=== PATIENT | male | born 1945 | race Caucasian/White ===

== ENCOUNTER 2019-02-15 19:59 | Inpatient (IN) | payer MEDICARE, SELFPAY ==
[2019-02-15] VITALS (13 sets, daily range): BP systolic 117–143; BP diastolic 65–85; PULSE 92–142; RESP 14–27; TEMP 36.8; O2SAT 92–95; BMI 42.0; BMI 42.1
--- NOTE | 2019-02-15 20:02 | ECHOCS_ITS ---
Reason For Study: Afib/Flutter Procedure This was a 2D Doppler, Color Flow transthoracic echocardiogram. The study was technically difficult. Contrast injection was performed. Exam performed portable in patient room. Left Ventricle Normal size and thickness. The estimated ejection fraction is 55 %. Stage 2 diastolic dysfunction. There is borderline global hypokinesis of the left ventricle. Right Ventricle Moderately dilated right ventricle. ICD or pacer leads identified within the right ventricle. Normal systolic function. Atria The left atrium is moderately enlarged. Normal right atrium. Normal atrial septum. Bubble contrast study negative for right to left interatrial shunt. Mitral Valve The mitral valve is structurally normal. No prolapse or stenosis seen. Mild (1+) mitral valve insufficiency. Tricuspid Valve Normal tricuspid valve. Mild (1+) tricuspid valve insufficiency. Right ventricular systolic pressure estimated to be 46 mmHg. Moderate pulmonary hypertension. Aortic Valve Trisinus/trileaflet aortic valve. Moderate diffuse aortic valve thickening. Mild focal aortic valve calcification. Moderate restriction of the aortic valve. Mild to moderate aortic stenosis. Peak aortic valve gradient 23 mmHg. Mean aortic valve gradient 11 mmHg. Calculated aortic valve area (continuity equation) is 1.1 cm2. Pulmonic Valve Normal pulmonic valve. Great Vessels Normal aortic root. Normal arch. Normal inferior vena cava. Inferior vena cava collapse with sniff. Pericardium/Pleural No pericardial effusion. Medication Diluted definity 2ml given slow IV push to enhance endocardial definition. MMode/2D Measurements & Calculations LVIDd: 4.4 cm IVSd: 1.3 cm LVOT diam: 2.0 cm LVIDs: 3.5 cm LVPWd: 1.3 cm FS: 21.8 % LVOT area: 3.2 cm2 LAV(MOD-bp): 64.5 ml LA A4 area: 24.2 cm2 RA A4 area: 16.6 cm2 LAV(MOD-bp) Indexed: 24.6 ml/m2 LAV(MOD-sp2): 59.9 ml LAV(MOD-sp4): 69.8 ml Time Measurements MV dec time: 0.16 sec Doppler Measurements & Calculations MV E max luis: 134.2 cm/sec Lat Peak E' Luis: 15.0 cm/sec Med Peak E' Luis: 7.5 cm/sec MV A max luis: 71.0 cm/sec E/E' lat: 8.9 E/E' med: 17.9 MV E/A: 1.9 MV V2 max: 148.3 cm/sec MV P1/2t max luis: 148.9 cm/sec Ao V2 max: 238.5 cm/sec MV max P.8 mmHg MV P1/2t: 64.6 msec Ao max P.8 mmHg MV V2 mean: 72.8 cm/sec MV dec slope: 675.0 cm/sec2 Ao V2 mean: 155.3 cm/sec MV mean P.7 mmHg Ao mean P.1 mmHg MV V2 VTI: 33.1 cm MVA(P1/2t): 3.4 cm2 Ao V2 VTI: 50.9 cm MVA(VTI): 1.6 cm2 MARY(I,D): 1.0 cm2 MARY(V,D): 1.0 cm2 LV V1 max: 76.8 cm/sec MR max luis: 428.4 cm/sec SV(LVOT): 52.6 ml LV V1 max P.4 mmHg MR max P.4 mmHg LV V1 mean P.3 mmHg LV V1 mean: 51.8 cm/sec LV V1 VTI: 16.2 cm TR max luis: 297.1 cm/sec TR max P.3 mmHg Interpretation Summary The estimated ejection fraction is 55 %. Stage 2 diastolic dysfunction. There is borderline global hypokinesis of the left ventricle. Moderately dilated right ventricle. The left atrium is moderately enlarged. Bubble contrast study negative for right to left interatrial shunt. Mild (1+) mitral valve insufficiency. Mild (1+) tricuspid valve insufficiency. Right ventricular systolic pressure estimated to be 46 mmHg. Moderate pulmonary hypertension. Moderate restriction of the aortic valve. Mild to moderate aortic stenosis. Patient appears to be in atrial flutter. The study was technically difficult. There is no comparison study available. Contrast injection was performed. Ordering Physician: Jennie Antonio Performed By: Guevara German RCS
--- NOTE | 2019-02-15 20:04 | HP.PCM_ITS ---
Problem List (1) Atrial flutter with rapid ventricular response Status: Acute (2) Hypertension Status: Chronic Qualifiers: Hypertension type: essential hypertension Qualified Code(s): I10 - Essential (primary) hypertension (3) DM type 2 (diabetes mellitus, type 2) Status: Chronic Qualifiers: Diabetes mellitus intermediate accountant insulin use: with intermediate accountant use Diabetes mellitus complication status: without complication Qualified Code(s): E11.9 - Type 2 diabetes mellitus without complications; Z79.4 - [facility] (current) use of insulin (4) Morbid obesity with BMI of 40.0-44.9, adult Status: Chronic (5) Chronic atrial fibrillation Status: Chronic (6) Status cardiac pacemaker Status: Chronic History of Present Illness Date of Admission: 02/15/19 Chief Complaint: Elevated heart rate - noticed today The patient is a 73 year old M with past medical history of chronic atrial fibrillation, pretension, type II DM, morbid obesity who recently moved to live with his daughter in [place]. He went to establish with a primary care doctor today and was found to have elevated heart rate and was sent to the emergency department. He denied any symptoms of palpitations or dizziness or chest pain or leg swelling. Patient admits to having run out of his medication for about 3 weeks. In the emergency department, he was found to be in atrial flutter with RVR. He received Cardizem 20 mg bolus, labetalol 10 mg IV x1 and was given Xarelto 20 mg tablet. Blood work done in the [facility] ED WBC count of 8.5, hemoglobin 15.7, platelet count of 203, INR was 1.0, sodium was 139, potassium 4.7, chloride 101, CO2 30, BUN 18, creatinine 1.15, magnesium was 1.8, troponin 0.087. EKG shows atrial flutter with RVR, QTC 437 On admission, patient's heart rate was in the 160s, blood pressure was 143/65, respiratory rate was 18, SPO2 was 95% on room air, temperature 98.2 F. Past Medical History Past Medical History (Chronic Problems): Chronic Problems Hypertension (Chronic) DM type 2 (diabetes mellitus, type 2) (Chronic) Morbid obesity with BMI of 40.0-44.9, adult (Chronic) Chronic atrial fibrillation (Chronic) Status cardiac pacemaker (Chronic) Home Medications: Ambulatory Orders Medication Instructions Recorded Citalopram [Celexa] 40 mg PO DAILY 02/15/19 Hydrochlorothiazide 1 tab PO DAILY 02/15/19 Insulin Glargine [Lantus SoloStar 16 units SQ QHS 02/15/19 Pen] Rivaroxaban [Xarelto] 1 tab PO DAILY 02/15/19 Sotalol Hydrochloride [Betapace 1 tab PO BID 02/15/19 (Beta Cristian)] Tamsulosin HCl 1 tab PO DAILY 02/15/19 Surgical History: cholecystectomy, pacemaker implantation, - - hemorrhoidectomy Psychiatric History: Anxiety, Depression Lives: With Family Smoking Status: Former smoker Tobacco Use: Non-smoker Alcohol: None Drugs: None - *Family History Maternal History Items: Cancer - stomach Paternal History Items: Diabetes Sibling History Items: Cancer - rectal Review of Systems Constitutional: Denies: Anorexia, Chills, Fever, Malaise, Weakness, Weight Change Eyes: Denies: Blurred vision, Cataracts, Conjunctivae Inflammation, Pain, Redness HEENT: Reports: Hard of Hearing. Denies: Head Aches, Sinus Congestion, Sinus Drainage Cardiovascular: Denies: Chest Pain, Claudication, Orthopnea, Palpitations, Paroxysmal Noc. Dyspnea Respiratory: Denies: Cough, Hemoptysis, Shortness of breath at rest, Shortness of breath upon exertion, Sputum production Gastrointestinal: Denies: Abdominal Pain, Constipation, Hematemesis, Hematochezia, Nausea, Vomiting Genitourinary: Denies: Dysuria, Frequency, Incontinence, Nocturia Musculoskeletal: Denies: Joint Pain, Joint stiffness, Joint swelling, Joint Tenderness Skin: Denies: Dryness, Pruritis, Rash, Wounds Neurological: Denies: Numbness, Tingling, Focal weakness Psychiatric: Denies: Anxiety, Depression, Homicidal Ideations, Suicidal Ideations Hematologic/ Lymphatic: Denies: Easy Bruising, Easy Bleeding VTE Information - Inpt Only VTE Present on Admission: No VTE Pharm Prophylaxis ordered?: Yes Patient Problems: Active and Suspected Problems Atrial flutter with rapid ventricular response (Acute) - Physical Exam Vitals/I&O's: Vital Signs Temp Pulse Resp BP Pulse Ox 98.2 F 101 H 18 143/65 H 95 02/15/19 20:00 02/15/19 20:00 02/15/19 20:00 02/15/19 20:00 02/15/19 20:00 Oxygen Delivery Method Room Air Weight: 144.7 kg Body Mass Index (BMI) 42.0 General: Alert, Oriented x3, Cooperative, No apparent distress, - - morbidly obese HEENT: Atraumatic, PERRLA, EOMI, Normocephalic, - - bilateral hearing aids Oral: Moist Mucosa Neck: Supple Lungs: Normal air movement, Diminished - at the lung bases Cardiovascular: Regular rate, No murmurs Abdomen: Bowel Sounds Present, Soft, Non Tender, Non-Distended, No Hepato- splenomegaly, Obese Extremities: Edema - Trace bilateral edema Skin: No rashes, No breakdown Musculoskeletal: No Tenderness to Palpation of Joints or Extremities Lymphatic: No Cervical, Supraclavicular, or Inguinal Adenopathy Neurological: Cranial nerves II-XII grossly intact, Neuro grossly intact Psych/Mental Status: Normal Affect, Appropriate Current Medications Acetaminophen (Tylenol) 650 mg PO Q6H PRN PRN PRN Reason: Pain Score 1-3/Temp > 100.7 F Al Hydroxide/Mg Hydroxide (Mylanta Ii) 30 ml PO Q6H PRN PRN PRN Reason: Gastric Burning Sodium Chloride () 250 mls @ 15 mls/hr IV .[id number] PRN PRN Reason: Saline Flush Sodium Chloride () 250 mls @ 15 mls/hr IV .[id number] PRN PRN Reason: Additional IVPB Infusion Diltiazem HCl 125 mg/ Dextrose 125 mls @ 5 mls/hr IV .Q25H HOMERO; Protocol Magnesium Hydroxide (Milk Of Magnesia) 30 ml PO DAILY PRN PRN PRN Reason: Constipation Melatonin (Melatonin) 3 mg PO QHS PRN PRN PRN Reason: INSOMNIA Nitroglycerin (Nitrostat) 0.4 mg SUBLINGUAL Q5M PRN PRN Reason: CARDIAC/CHEST PAIN Ondansetron HCl (Zofran) 4 mg IV Q8H PRN PRN PRN Reason: NAUSEA/VOMITING Senna/Docusate Sodium (Senokot-S, Kesha-Colace) 2 tablet PO BID PRN PRN PRN Reason: Constipation Sodium Chloride () 10 - 40 ml IV UD PRN PRN Reason: SALINE FLUSH Assessment/Plan All Active Problems Atrial flutter with rapid ventricular response (Acute) 73 year old M with past medical history of chronic atrial fibrillation, pretension, type II DM, morbid obesity comes in with elevated heart rate noticed in the primary care doctor's office. 1. A flutter with RVR, asymptomatic, secondary to having missed medications for more than 3 weeks History of chronic atrial fibrillation, Status post 1 dose of Cardizem and labetalol in [place] ED, remains in RVR Will continue on Cardizem drip, Xarelto, sotalol Trend troponins, 2D echo Cardiology consult 2. Hypomagnesemia, noted in outside lab, Will repeat here, treat if comes back low. 3. Type II DM, on Lantus, continue home Lantus, As well as continue on blood glucose checks with insulin sliding scale 4. Hypertension, fairly controlled, continue on the hydrochlorothiazide Continue to monitor vitals 5. Anxiety/depression, on Celexa 6. Probable obstructive sleep apnea, will need outpatient sleep study after discharge 7. Morbid obesity, BMI 42.1, lifestyle modifications and diet 8. DVT prophylaxis on Xarelto 9. Code status: Full code Discussed in detail with the patient explaining the various types of CODE STATUS-full code, DNR CCA, DNR CC. Daughter has paperwork from [facility] showing she is a healthcare power of employment law attorney. Recommended that she bring the paperwork in so we can keep a copy on file. Patient states that he does not wish to be kept on artificial support forever. I explained further that usually at the time of the Code, it is usually unknown how patient is going to do later. He wishes to discuss this further with his daughter. Time spent discussing CODE STATUS 18 minutes Code Visit Inpatient E&M: 32012 Init Hosp L3 Procedures: 62980 Advncd Care Plan 30 Min
[2019-02-15 21:04] LABS: Anion Gap 6 (5-15); BUN 15 mg/dL (7-18); Chloride 104 mmol/L (98-107); Creatinine, Serum 1.15 mg/dL (0.70-1.30); EST Glomerular Filtration Rate 66 mL/min (>60); Est Glom Filt Rate - Afr Amer 80 mL/min (>60); Estimated Creatinine Clearance 65.62 ml/min; Glucose 313 mg/dL (74-106); Potassium 3.8 mmol/L (3.5-5.1); Sodium Level 135 mmol/L (136-145)
[2019-02-15] MEDS: 0.9% Saline Lock 10 ML Syringe IV (21:04)
[2019-02-15] MEDS: Sotalol Hydrochloride 80 MG Tablet PO (22:53)
[2019-02-15] MEDS: Insulin Lispro 100 UNIT/ML INSULN.PEN SC (22:57)
[2019-02-15 23:11] LABS: Bedside Glucose 297 mg/dL (70-110)
[2019-02-16] VITALS (28 sets, daily range): BP systolic 99–132; BP diastolic 62–108; PULSE 68–195; RESP 12–23; TEMP 36.1–37; O2SAT 90–98
[2019-02-16] MEDS: MELATONIN 3 MG TABLET PO (00:13)
[2019-02-16 03:02] LABS: BUN 17 mg/dL (7-18); EST Glomerular Filtration Rate 70 mL/min (>60); Glucose 239 mg/dL (74-106)
[2019-02-16 03:03] LABS: ALB/GLOB Ratio 0.8 RATIO (0.9-2.4); AST(SGOT) 19 U/L (15-37); Alanine Aminotransfer ALT/SGPT 31 U/L (16-61); Albumin, Serum 3.4 g/dL (3.2-5.0); Alkaline Phosphatase 59 U/L (45-117); Anion Gap 5 (5-15); BUN/Creat Ratio 15.5 RATIO (10-20); Calcium,Total 8.9 mg/dL (8.5-10.1); Chloride 105 mmol/L (98-107); Est Glom Filt Rate - Afr Amer 84 mL/min (>60); Globulin 4.4 g/dL (2.2-4.2); Potassium 4.2 mmol/L (3.5-5.1); Protein, Total 7.8 g/dL (6.4-8.2); Sodium Level 134 mmol/L (136-145)
--- NOTE | 2019-02-16 05:55 | RAD_ITS ---
STUDY: X-RAY CHEST REASON FOR EXAM: Male, 73 years old. RLL INFILTRATE SEEN ON CXR AT OTHER HOSPITAL TECHNIQUE: Single AP portable view of the chest. COMPARISON: None. FINDINGS: EKG electrodes are seen. There is elevation of the right hemidiaphragm. Increased markings at the right lung base. There is no demonstrated pleural abnormality. Normal size heart. A left-sided chamber pacemaker is seen. Normal mediastinum and lynda. Normal visualized pulmonary arteries. Normal visualized aortic arch and descending thoracic aorta. There are diffuse degenerative changes of the visualized thoracic spine. Normal visualized ribs, clavicles, and shoulders. There is no demonstrated abnormality of the visualized soft tissue structures of the upper abdomen. RAD/Chest 1 View (Portable) IMPRESSION: There is elevation of the right hemidiaphragm with increased markings at the right lung base. Electronically Signed: Cuong High, at 10:03 EST , Service support ,
[2019-02-16] MEDS: Insulin Lispro 100 UNIT/ML INSULN.PEN SC ×4 (07:02→22:12)
[2019-02-16 07:10] LABS: Bedside Glucose 199 mg/dL (70-110)
[2019-02-16] MEDS: Tamsulosin HCl 0.4 MG Capsule PO (08:41)
[2019-02-16] MEDS: Citalopram 40 MG TABLET PO (08:41)
[2019-02-16] MEDS: Sotalol Hydrochloride 80 MG Tablet PO ×2 (08:41→22:12)
[2019-02-16] MEDS: hydroCHLOROthiazide 12.5mg 12.5 MG PO (08:41)
--- NOTE | 2019-02-16 10:06 | STEWCON_ITS ---
Reason For Study: AFIB/FLUTTER Stress Results Protocol: Dobutamine Stress Echo With Definity Maximum Predicted HR: 148 bpm Target HR: 126 bpm % Maximum Predicted HR: 89 % DurationHeart Rate Stage (mm:ss) (bpm) BP Dose Comment BASELINE 71 131/87 5CC DEFINITY STAGE 1 3:05 79 126/6510.00 STAGE 2 3:00 57 121/7320.00 STAGE 3 3:10 131 148/8130.00 RECOVERY 88 148/81 Stress Duration: 9:15 mm:ss Maximum Stress HR: 131 bpm Baseline Echocardiogram Findings The estimated ejection fraction is 65 %. Stress Echo Wall motion Data Resting WM Intermediate WM Stress WM Resting Wall Motion Wall Motion Stress No regional wall motion No regional wall motion abnormalities noted. abnormalities noted. EKG Data Atrial flutter with controlled ventricular response. The patient was titrated from 10 mcg to a maximun of 30 mcg of dobutamine during the stress. The maximum heart rate attained was 133 beats per minute. This was 89% of maximum predicted heart rate. During dobutamine infusion, there were no ST or T wave changes noted to suggest ischemia. No clinical angina was noted. Interpretation Summary The estimated ejection fraction is 65 %. Normal, adequate, dobutamine echocardiogram. Negative for ischemia by EKG and echocardiographic criteria. No anginal symptoms noted. Rare PVCs noted. Baseline rhythm was atrial flutter with controlled ventricular response. Test terminated due to the attainment target heart rate. Decreased sensitivity due to baseline atrial flutter and poor echo windows requiring Definity agent. Final LVEF is 75%. No complications. The study was technically difficult. Contrast injection was performed. Ordering Physician: Jairo Bridges Performed By: Georgette Hooks, JOCELYN, RVT
--- NOTE | 2019-02-16 10:49 | CON.PCM_ITS ---
<Aleida Christianson M - Last Filed: 02/16/19 10:49> Problem List (1) Atrial flutter with rapid ventricular response Status: Acute (2) Hypertension Status: Chronic Qualifiers: Hypertension type: essential hypertension Qualified Code(s): I10 - Essential (primary) hypertension (3) Status cardiac pacemaker Status: Chronic Reason for Consult Date of Consultation: 02/16/19 History of Present Illness: The patient is a 73 year old M [With a past medical history of chronic atrial fibrillation, hypertension, diabetes, morbid obesity. Patient recently moved to [place] to live with his daughter. He was establishing with his primary care doctor yesterday when he was noted to have an elevated heart rate. He was then sent to [facility] emergency room for further evaluation. EKG at that time demonstrated a heart rate of 83, repeat EKG after Cardizem bolus and labetalol were given demonstrated atrial flutter with a heart rate of 88 with an underlying paced ventricular rhythm. In discussing things with patient patient was unaware of his past heart rate. He states that he has not seen his health care consultant in greater than a year. He was doctoring at [facility]. He states that he had a pacemaker placed following a syncopal event that was approximately 2 years ago. He states that his pacemaker has not been interrogated in approximately 1 year. Per patient there was discussion about an ablation however he did not pursue this surgery. It appears that his home medications he was on Betapace, Xarelto and hydrochlorothiazide for his cardiac medications. He states that due to financial reasons he did not refill these medications, he has been out of his medications for approximately 3 weeks. He was establishing with his primary care doctor to get a new refill on these prescriptions. Patient does not have any chest discomfort. He does not have any worsening shor tness of breath. He does not have any lightheadedness or dizziness. He has not had any syncopal events since having his pacemaker placed. He does not have any lower extremity edema. He does not have any bleeding issues while he was on his Xarelto. ] Past Medical History Allergies/Adverse Reactions: Allergies guaifenesin [From Robitussin] Adverse Reaction (Verified 02/15/19 20:36) Nausea Home Medications: Ambulatory Orders Medication Instructions Recorded Citalopram [Celexa] 40 mg PO DAILY 02/15/19 Hydrochlorothiazide 1 tab PO DAILY 02/15/19 Insulin Glargine [Lantus SoloStar 16 units SQ QHS 02/15/19 Pen] Rivaroxaban [Xarelto] 1 tab PO DAILY 02/15/19 Sotalol Hydrochloride [Betapace 1 tab PO BID 02/15/19 (Beta Cristian)] Tamsulosin HCl 1 tab PO DAILY 02/15/19 Past Medical History (Chronic Problems): Chronic Problems Hypertension (Chronic) DM type 2 (diabetes mellitus, type 2) (Chronic) Morbid obesity with BMI of 40.0-44.9, adult (Chronic) Chronic atrial fibrillation (Chronic) Status cardiac pacemaker (Chronic) Surgical History: cholecystectomy, pacemaker implantation, - - hemorrhoidectomy Psychiatric History: Anxiety, Depression - *Family History Maternal History Items: Cancer - stomach Paternal History Items: Diabetes Sibling History Items: Cancer - rectal Lives: With Family Smoking Status: Former smoker Tobacco Use: Non-smoker Alcohol: None Drugs: None Review of Systems - Review of Systems General: Denies: Fever, Fatigue, Weakness HEENT: Denies: Vision Change, Eye Pain, Head Aches Cardiovascular: Denies: Chest Discomfort, Chest Discomfort at Rest, Chest Discomfort with Exertion, Shortness of Breath, Shortness of Breath at Rest, Shortness of Breath with Exertion, Orthopnea, Peripheral Edema, Palpitations, Lightheadedness, Dizziness, Near Syncope, Syncope Respiratory: Denies: Cough Gastrointestinal: Denies: Indigestion, Abdominal Discomfort, Melena Genitourinary: Denies: Hematuria Skin: Denies: Rash Neurological: Denies: Dizziness, Confusion, Falls Objective: Vital Signs Temp Pulse Resp BP Pulse Ox 98.4 F 121 H 19 H 119/63 96 02/16/19 07:45 02/16/19 10:10 02/16/19 10:08 02/16/19 10:08 02/16/19 10:08 Oxygen Delivery Method Room Air Weight: 319 lb 3.669 oz Body Mass Index (BMI) 42.0 Intake and Output for Last 24 Hours 02/14/19 02/15/19 02/16/19 23:59 23:59 23:59 Intake Total 31.50 / 37.50 137.51 / 137.51 Output Total 300 / 300 Balance -268.50 / -262.50 137.51 / 137.51 General: Healthy Appearing, Awake, Alert, Oriented x 3, Cooperative, Obese HEENT: Atraumatic, Normocephalic, PERRL, EOMI, Sclera Non Icteric Oral: Moist Mucosa Neck: Supple, No JVD Lungs: Diminished Myron Bases Cardiovascular: Regular Rhythm, No Murmurs, No Rubs, No Gallops Vascular: No Carotid Bruits Abdomen: Bowel Sounds Present, Soft, Non Tender, Obese Extremities: No Cyanosis, No Clubbing, No edema Neurological: No Focal Motor or Sensory Deficit, CN II-XII Intact Psych/Mental Status: Appropriate, Normal Affect 02/15/19 20:35: Sodium 135 L, Potassium 3.8, Chloride 104, Carbon Dioxide 25.0, Anion Gap 6, BUN 15, Creatinine 1.15, Est GFR (MDRD) Af Amer 80, Est GFR (MDRD) Non-Af 66, BUN/Creatinine Ratio 13.0, Glucose 313 H, Calcium 9.0, Magnesium 2.0, Troponin I 0.040 02/15/19 23:22: Troponin I 0.049 H 02/16/19 02:30: Sodium 134 L, Potassium 4.2, Chloride 105, Carbon Dioxide 24.0, Anion Gap 5, BUN 17, Creatinine 1.10, Est GFR (MDRD) Af Amer 84, Est GFR (MDRD) Non-Af 70, BUN/Creatinine Ratio 15.5, Glucose 239 H, Calcium 8.9, Total Bilirubin 0.40, Troponin I 0.050 H Rhythm: EKG: ECHO: Stress Test: Cardiac Cath: PCI: CT Surgery: Holter monitor: EPS: PPM: CXR: Chest CT Scan: Assessment/Plan 1. Atrial flutter: It does appear that patient does have a history of persistent atrial fibrillation/flutter. Will obtain medical records from [facility]. Patient has been restarted on his factor Xa inhibitor. Did have a discussion with patient that if he cannot afford this after discharge Coumadin could be considered. Plan is to restart his Betapace. We will also obtain an echocardiogram and a stress echo. 2. Indeterminant troponin: We will obtain a stress echocardiogram to further evaluate. 3. Hypertension. We will continue to monitor. 4. Pacemaker placement: We will obtain medical records to see what type of pacemaker device that he has. Will then have this device interrogated. This case was discussed with Dr. Bridges <Jairo Bridges - Last Filed: 02/16/19 13:47> Problem List (1) Atrial flutter with rapid ventricular response Status: Acute (2) Hypertension Status: Chronic Qualifiers: Hypertension type: essential hypertension Qualified Code(s): I10 - Essential (primary) hypertension (3) DM type 2 (diabetes mellitus, type 2) Status: Chronic Qualifiers: Diabetes mellitus halfway insulin use: with bed bug exterminator use Diabetes mellitus complication status: without complication Qualified Code(s): E11.9 - Type 2 diabetes mellitus without complications; Z79.4 - terminal operations supervisor (current) use of insulin (4) Morbid obesity with BMI of 40.0-44.9, adult Status: Chronic (5) Chronic atrial fibrillation Status: Chronic (6) Status cardiac pacemaker Status: Chronic Reason for Consult History of Present Illness: The patient is a 73 year old M seen and examined in conjunction with Aleida Christianson. Patient seen and examined and agree with above. Patient recently relocated from the [facility] where most of his cardiac care took place at [facility], and also has [facility] but no longer really goes to [email or web address] His daughter used to work at [employer] and used to arrange for his medications to be renewed on a monthly basis however she recently changed jobs, and he ran out of his medications about 3 weeks ago. Patient is up medical evaluation at his PCPs office yesterday and was found to be in rapid atrial flutter and admitted for rate control. Despite this, the patient actually felt great, and denied any chest pain, angina, awareness of his palpitations or atrial flutter, and has had no presyncope or syncope. The patient has had 4 previous cardioversions all of which have been failed, and was unable to secure insurance adequate enough to cover an ablation procedure for atrial flutter. He denies ever having a catheterization. He currently walks with a cane over large distances but is unable to walk on a treadmill. He has never had a stroke or myocardial infarction. [] Subjectve: Patient laying in a chair, no acute distress. Cardizem drip is off. Objective: Vital Signs Temp Pulse Resp BP Pulse Ox 98.1 F 91 18 110/76 95 02/16/19 09:00 02/16/19 11:02 02/16/19 11:00 02/16/19 11:00 02/16/19 11:00 Oxygen Delivery Method Room Air Weight: 319 lb 3.669 oz Body Mass Index (BMI) 42.0 Intake and Output for Last 24 Hours 02/14/19 02/15/19 02/16/19 23:59 23:59 23:59 Intake Total 31.50 / 37.50 392.85 / 392.85 Output Total 300 / 300 250 / 250 Balance -268.50 / -262.50 142.85 / 142.85 General: Awake, Alert, Oriented x 3 HEENT: PERRL, EOMI, Sclera Non Icteric Neck: Supple, Good ROM, No Lymph Node Enlargement Lungs: Clear to auscultation Cardiovascular: Irregular Rhythm, Normal S1, Normal S2, No Murmurs, No Rubs, No Gallops Vascular: No Carotid Bruits, Normal Femoral Pulses, Normal Radial Pulses, Normal Dorsalis Pedal Pulse, Normal Posterior Tibial Pulses Abdomen: Bowel Sounds Present, Soft, Non Tender, No HSM, No Organomegaly Extremities: No Cyanosis, No Clubbing, No edema Neurological: No Focal Motor or Sensory Deficit 02/15/19 20:35: Sodium 135 L, Potassium 3.8, Chloride 104, Carbon Dioxide 25.0, Anion Gap 6, BUN 15, Creatinine 1.15, Est GFR (MDRD) Af Amer 80, Est GFR (MDRD) Non-Af 66, BUN/Creatinine Ratio 13.0, Glucose 313 H, Calcium 9.0, Magnesium 2.0, Troponin I 0.040 02/15/19 23:22: Troponin I 0.049 H 02/16/19 02:30: Sodium 134 L, Potassium 4.2, Chloride 105, Carbon Dioxide 24.0, Anion Gap 5, BUN 17, Creatinine 1.10, Est GFR (MDRD) Af Amer 84, Est GFR (MDRD) Non-Af 70, BUN/Creatinine Ratio 15.5, Glucose 239 H, Calcium 8.9, Total Bilirubin 0.40, Troponin I 0.050 H Rhythm: EKG: ECHO: Stress Test: Cardiac Cath: PCI: CT Surgery: Holter monitor: EPS: PPM: CXR: Chest CT Scan: Assessment/Plan 1. Atrial flutter: The patient has rate control achieved with IV Cardizem therapy. As part of his cardiac analysis and in order to safely restart him on his sotalol I recommended he undergo a 2D echo with Doppler to obtain his LV function and pulmonary pressures. In addition I recommend he undergo a dobutamine echocardiogram to assess for possible ischemia. If both of these show no significant structural heart disease, would recommend restarting him on sotalol therapy 80 mg p.o. twice daily, as well as his Xarelto therapy. Should the patient require catheterization I would not restart his Xarelto at this time until after his coronary anatomy has been evaluated. We can gradually titrate up his sotalol in order to change heart rate control. Would not recommend Cardizem therapy at this time unless or until we are unsuccessful with rate control with sotalol alone. Patient has had 4 failed DC cardioversion in the past would not recommend DC cardioversion at this time or going forward. At most the patient may benefit from atrial flutter ablation should his insurance be able to cover it. 2. Obstructive sleep apnea: Patient has signs and symptoms of obstructive sleep apnea, and was noted that he was significantly snoring last evening. Recommend outpatient sleep study. 3. Pacemaker: Patient's pacemaker appears to be functioning normally. Pacemaker interrogation pending. 4. Thank you very much for the opportunity to participate in cardiac care of your patient. Consultation time took place between 1230 and 1:05 PM. Code Visit Inpatient E&M: 94595 Init Hosp L2
[2019-02-16 10:51] LABS: Bedside Glucose 265 mg/dL (70-110)
[2019-02-16] MEDS: Loperamide 2 MG Capsule PO (11:13)
--- NOTE | 2019-02-16 12:10 | CASEMGMT ---
KEENAN CONTRERAS assessment: Face to Face with patient for initial transition planning/care coordination assessment. KEENAN CONTRERAS introduced self and role at [facility], pt voices understanding and consents to assessment at this time. Pt is sitting up in chair in no distress at this time. Pt is A/Ox4 at this time and answers all questions appropriately at this time. Care providers, pharmacy, and demographics verified/updated at this time. Presentation: elevated heart rate and sent to [facility] ED then transferred to [facility] Admitting dx: Aflutter w/ RVR PCP: Reji Elias Specialists: Pt states is switching over to new doctors and plans to see [facility] now. Preferred Pharmacy: [facility] Insurance: Therative Prescription Benefit: [employer] Living Will/HPOA: Pt states has a LW/HPOA and is aware that it is not currently on file at [facility] at this time. Pt states his brother, Mitch Stern, is HPOA. LNOK: Mitch Stern, brother/HPOA; Linda Felix, daughter Living Arrangements: Pt states lives with daughter, her , and his grandson in a 1 story home with laundry in the basement and states no concerns at home at this time. Pt states is independent with ADL's. Transportation: Pt states drives self and states no transportation concerns at this time. DME/HHC: Pt states has a cane and states no need for any further DME at this time. Pt states no hx of HHC or SNF in the past. Pt states no concerns with going home at time of discharge. Pt states is retired. Pt states does not smoke and rarely drinks ETOH. Pt states no further concerns/needs at this time. CM to follow for any further discharge planning/needs. Advised pt to ask for CM if any further questions/concerns/needs arise, voices understanding. Pt Goal: Home Plan[place] KEENAN CONTRERAS
--- NOTE | 2019-02-16 12:52 | PN_ITS ---
Patient Problems: Active and Suspected Problems Atrial flutter with rapid ventricular response (Acute) Subjective: Patient seen and examined. He was admitted with a complaint of tachycardia. Patient had gone to see his new PCP in [place] and said he felt perfectly fine. However his PCP told him to come into the ED because of his elevated heart rate. He denied any palpitations or dizziness or chest pain or swelling in his legs. It does appear that patient has a history of chronic A. fib but said he had been out of his meds for about 3 weeks prior to admission. On admission, he was found to be in atrial flutter with rapid ventricular rate. Heart rate was in the 160s. He was given Cardizem bolus and labetalol and given Xarelto. He was subsequently started on Cardizem drip. Patient has no complaints this morning. He felt well and denied any palpitations or dizziness, chest pain, lightheadedness, abdominal pain, diarrhea vomiting. Review of systems otherwise negative. Labs and vitals reviewed. He remains hemodynamically stable. Initial troponin was 0.040 and trended up slightly to 0.05.Review of systems otherwise negative. Vitals/I&O's: Vital Signs Temp Pulse Resp BP Pulse Ox 98.1 F 91 18 110/76 95 02/16/19 09:00 02/16/19 11:02 02/16/19 11:00 02/16/19 11:00 02/16/19 11:00 Oxygen Delivery Method Room Air Weight: 319 lb 3.669 oz Body Mass Index (BMI) 42.0 Intake and Output for Last 24 Hours 02/14/19 02/15/19 02/16/19 23:59 23:59 23:59 Intake Total 31.50 / 37.50 152.85 / 152.85 Output Total 300 / 300 Balance -268.50 / -262.50 152.85 / 152.85 General: Alert, Oriented x3, Cooperative, No apparent distress HEENT: Atraumatic, PERRLA, EOMI, Normocephalic Oral: Moist Mucosa Neck: Supple, No JVD, Negative Carotid Bruits Lungs: Clear to auscultation, Normal air movement, No rhonchi, No wheeze Cardiovascular: Regular rate, Regular Rhythm, Normal S1, Normal S2, No murmurs Abdomen: Bowel Sounds Present, Soft, Non Tender, Non-Distended, No Hepato- splenomegaly Extremities: No clubbing, No cyanosis, No edema, Capillary Refill Less than 3 Seconds Skin: No rashes, No breakdown Musculoskeletal: No Tenderness to Palpation of Joints or Extremities Lymphatic: No Cervical, Supraclavicular, or Inguinal Adenopathy Neurological: Cranial nerves II-XII grossly intact, Neuro grossly intact, Motor Exam 5/5 strength throughout Psych/Mental Status: Normal Affect, Appropriate, Alert and oriented to time, place, person, mood and affect Laboratory Results 02/15/19 20:35: Sodium 135 L, Potassium 3.8, Chloride 104, Carbon Dioxide 25.0, Anion Gap 6, BUN 15, Creatinine 1.15, Estim Creat Clear Calc 65.62, Est GFR (MDRD) Af Amer 80, Est GFR (MDRD) Non-Af 66, BUN/Creatinine Ratio 13.0, Glucose 313 H, Calcium 9.0, Magnesium 2.0, Troponin I 0.040 02/15/19 22:50: POC Glucose 297 H 02/15/19 23:22: Troponin I 0.049 H 02/16/19 02:30: Sodium 134 L, Potassium 4.2, Chloride 105, Carbon Dioxide 24.0, Anion Gap 5, BUN 17, Creatinine 1.10, Estim Creat Clear Calc 68.60, Est GFR (MDRD) Af Amer 84, Est GFR (MDRD) Non-Af 70, BUN/Creatinine Ratio 15.5, Glucose 239 H, Calcium 8.9, Total Bilirubin 0.40, AST 19, ALT 31, Alkaline Phosphatase 59, Troponin I 0.050 H, Total Protein 7.8, Albumin 3.4, Globulin 4.4 H, Albumin/Globulin Ratio 0.8 L 02/16/19 06:59: POC Glucose 199 H 02/16/19 10:47: POC Glucose 265 H Diagnostic Data Chest X-Ray 02/16/19 05:55 IMPRESSION: There is elevation of the right hemidiaphragm with increased markings at the right lung base. Electronically Signed: Cuong High, at 10:03 EST , Service support , Current Medications Acetaminophen (Tylenol) 650 mg PO Q6H PRN PRN PRN Reason: Pain Score 1-3/Temp > 100.7 F Al Hydroxide/Mg Hydroxide (Mylanta Ii) 30 ml PO Q6H PRN PRN PRN Reason: Gastric Burning Citalopram Hydrobromide (Celexa) 40 mg PO DAILY [facility] Last Admin: 02/16/19 08:41 Dose: 40 mg Documented by: Glucagon () 1 mg IM .X1 PRN PRN Reason: Hypoglycemia Hydrochlorothiazide () 12.5 mg PO DAILY [facility] Last Admin: 02/16/19 08:41 Dose: 12.5 mg Documented by: Sodium Chloride () 250 mls @ 15 mls/hr IV .[id number] PRN PRN Reason: Saline Flush Sodium Chloride () 250 mls @ 15 mls/hr IV .[id number] PRN PRN Reason: Additional IVPB Infusion Diltiazem HCl 125 mg/ Dextrose 125 mls @ 5 mls/hr IV .Q25H HOEMRO; Protocol Last Titration: 02/16/19 11:40 Dose: Infused Documented by: Dextrose (Dextrose 10%-Water) 250 mls @ 999 mls/hr IV .Q16M PRN; Protocol PRN Reason: HYPOGLYCEMIA Insulin Glargine (Lantus (Bk)) 16 units SC QHS [facility] Last Admin: 02/15/19 22:53 Dose: 16 units Documented by: Insulin Human Lispro (Humalog Kwikpen (Bk)) 0 unit SC ACHS [facility]; Protocol Last Admin: 02/16/19 11:13 Dose: 2 unit Documented by: Loperamide HCl (Imodium) 2 mg PO Q4H PRN PRN PRN Reason: Diarrhea Last Admin: 02/16/19 11:13 Dose: 2 mg Documented by: Magnesium Hydroxide (Milk Of Magnesia) 30 ml PO DAILY PRN PRN PRN Reason: Constipation Melatonin (Melatonin) 3 mg PO QHS PRN PRN PRN Reason: INSOMNIA Last Admin: 02/16/19 00:13 Dose: 3 mg Documented by: Nitroglycerin (Nitrostat) 0.4 mg SUBLINGUAL Q5M PRN PRN Reason: CARDIAC/CHEST PAIN Ondansetron HCl (Zofran) 4 mg IV Q8H PRN PRN PRN Reason: NAUSEA/VOMITING Rivaroxaban (Xarelto) 20 mg PO DAILY@1700 [facility] Senna/Docusate Sodium (Senokot-S, Kesha-Colace) 2 tablet PO BID PRN PRN PRN Reason: Constipation Sodium Chloride () 10 - 40 ml IV UD PRN PRN Reason: SALINE FLUSH Last Admin: 02/15/19 21:04 Dose: 10 ml Documented by: Sotalol HCl (Betapace (G)) 80 mg PO BID [facility] Last Admin: 02/16/19 08:41 Dose: 80 mg Documented by: Tamsulosin HCl (Flomax) 0.4 mg PO DAILY@0830 [facility] Last Admin: 02/16/19 08:41 Dose: 0.4 mg Documented by: STROKE Vital Signs/Narrative: Vital Signs Temp Pulse Resp BP Pulse Ox 02/16/19 11:02 91 02/16/19 11:00 77 18 110/76 95 02/16/19 10:45 86 20 H 121/98 H 96 02/16/19 10:30 94 20 H 117/80 96 02/16/19 10:15 94 14 132/108 H 98 02/16/19 10:10 121 H 02/16/19 10:08 195 H 19 H 119/63 96 02/16/19 09:00 98.1 F 75 23 H 118/73 96 Medical Necessity - Tobacco Use Smoking Status: Former smoker Tobacco Use: Non-smoker Assessment/Plan All Active Problems Atrial flutter with rapid ventricular response (Acute) 1. Atrial flutter with RVR * now rate controlled. * on cardizem drip, HR was in the 70s * on xarelto and sotalol * cardiology on board * 2D echo pending * 2. Indeterminate troponin * troponin was 0.040, and peaked at only 0.050 * cardiology on board * patient is totally asymptomatic and this is likely due to Atrial flutter with RVR * 2D echo pending * 3. Hypertension: controlled. On hydrochlorthiazide. 4. Type 2 diabetes mellitus: * On Lantus 16 units nightly. Insulin sliding scale. Accu-Cheks AC at bedtime. 5. Anxiety and depression: On Celexa. 6. Hypomagnesemia: Magnesium within normal limits now. 7. Probable JOSSELYN: To follow-up with pulmonology on outpatient basis for sleep study. 8. Morbid obesity: BMI is 42.1. This complicates acute care, expected recovery and prognosis. DVT prophylaxis: on xarelto Code Visit Inpatient E&M: 62247 Subs Hosp L3
[2019-02-16 15:05] LABS: Bedside Glucose 230 mg/dL (70-110)
[2019-02-16 22:21] LABS: Bedside Glucose 174 mg/dL (70-110)
[2019-02-17] VITALS (9 sets, daily range): BP systolic 108–130; BP diastolic 66–82; PULSE 67–94; RESP 15–17; TEMP 36.6; O2SAT 95–98
[2019-02-17 06:48] LABS: Absolute Lymphocyte Count 2.12 X10^3/uL (0.83-4.51); Basophil# 0.06 X10^3/uL; Basophil% 0.8 % (0-1); Eosinophil# 0.15 X10^3/uL; Eosinophils% 1.9 % (0-5); Hematocrit 48.4 % (40-54); Hemoglobin 15.6 g/dL (13.0-16.5); Lymphocyte # 2.12 X10^3/ul (4.0); Lymphocyte % 26.5 % (19-41); Mean Corp Hgb Conc 32.2 g/dL (32-36); Mean Corpuscular Hgb 27.1 pg (27.0-32.0); Mean Corpuscular Volume 84.2 fL (80-94); Mean Platelet Vol. 10.7 fl (6.2-12.0); Monocyte# 0.64 X10^3/uL; NRBC Flagged by Analyzer 0 % (0-5); Neutrophil # 4.97 X10^3/uL (2.7-7.7); Neutrophil % 62.2 % (47-70); Platelet Count 205 K/mm3 (150-450); RBC Distribution Width CV 15.1 % (11.6-14.6); RBC Distribution Width SD 45.7 fl (35.1-43.9); Red Blood Count 5.75 M/mm3 (4.6-6.2)
[2019-02-17 07:31] LABS: Anion Gap 3 (5-15); BUN 16 mg/dL (7-18); BUN/Creat Ratio 14.8 RATIO (10-20); Calcium,Total 8.9 mg/dL (8.5-10.1); Chloride 101 mmol/L (98-107); Creatinine, Serum 1.08 mg/dL (0.70-1.30); EST Glomerular Filtration Rate 71 mL/min (>60); Est Glom Filt Rate - Afr Amer 86 mL/min (>60); Estimated Creatinine Clearance 69.87 ml/min; Glucose 199 mg/dL (74-106); Sodium Level 135 mmol/L (136-145)
--- NOTE | 2019-02-17 07:50 | EKG12_ITS ---
Test Reason : ROUTINE Blood Pressure : / mmHG Vent. Rate : 092 BPM Atrial Rate : 250 BPM P-R Int : 000 ms QRS Dur : 154 ms QT Int : 406 ms P-R-T Axes : -72 -72 -60 degrees QTc Int : 502 ms Atrial flutter with variable A-V block with premature ventricular or aberrantly conducted complexes Left axis deviation Right bundle branch block Inferior infarct , age undetermined T wave abnormality, consider lateral ischemia Abnormal ECG No previous ECGs available Confirmed by JASON SANDHU, ALDO ([id number]), telegraph editor HUNTER BALLARD ([id number]) on 02/18/2019 1:26:13 PM Referred By: JEROME Confirmed By:YOHANNES GOMEZ MD
[2019-02-17] MEDS: Insulin Lispro 100 UNIT/ML INSULN.PEN SC ×3 (09:00→17:20)
[2019-02-17] MEDS: Tamsulosin HCl 0.4 MG Capsule PO (09:00)
[2019-02-17] MEDS: hydroCHLOROthiazide 12.5mg 12.5 MG PO (09:00)
[2019-02-17] MEDS: Citalopram 40 MG TABLET PO (09:00)
[2019-02-17] MEDS: Sotalol Hydrochloride 80 MG Tablet PO (09:00)
--- NOTE | 2019-02-17 09:03 | PCM.PN.CARD ---
Subjectve: Patient seen and examined, heart rate much better controlled after third dose of sotalol but still has episodes of increased heart rate with ambulation. No chest pain or angina. Echocardiogram yesterday showed an EF of 55% with an RVSP of 46 mmHg, moderate restriction of aortic valve with mild aortic stenosis, dobutamine echocardiogram negative yesterday. EKG today demonstrates atrial flutter with controlled ventricular response and right bundle branch block at baseline. Objective: Vital Signs Temp Pulse Resp BP Pulse Ox 97.8 F 94 17 108/69 96 02/17/19 06:22 02/17/19 07:30 02/17/19 06:22 02/17/19 06:22 02/17/19 08:00 Oxygen Delivery Method Room Air Weight: 315 lb 4.176 oz Body Mass Index (BMI) 42.0 Intake and Output for Last 24 Hours 02/15/19 02/16/19 02/17/19 23:59 23:59 23:59 Intake Total 31.50 / 37.50 1352.85 / 1352.85 240 / 240 Output Total 300 / 300 250 / 250 Balance -268.50 / -262.50 1102.85 / 1102.85 240 / 240 General: Awake, Alert, Oriented x 3 HEENT: PERRL, EOMI, Sclera Non Icteric Neck: Supple, Good ROM, No Lymph Node Enlargement Lungs: Clear to auscultation Cardiovascular: Irregular Rhythm, Normal S2, No Rubs, No Gallops Murmur Murmur: Grade 2/6, Crescendo-Decrescendo Vascular: No Carotid Bruits, Normal Femoral Pulses, Normal Radial Pulses, Normal Dorsalis Pedal Pulse, Normal Posterior Tibial Pulses Abdomen: Bowel Sounds Present, Soft, Non Tender, No HSM, No Organomegaly Extremities: No Cyanosis, No Clubbing, No edema Neurological: No Focal Motor or Sensory Deficit 02/17/19 06:15: WBC 8.0, RBC 5.75, Hgb 15.6, Hct 48.4, MCV 84.2, MCH 27.1, MCHC 32.2, Plt Count 205, MPV 10.7, Immature Gran % (Auto) 0.600, Neut % (Auto) 62.2, Lymph % (Auto) 26.5, [place] % (Auto) 8.0, Eos % (Auto) 1.9, Baso % (Auto) 0.8, Absolute Neuts (auto) 5.0, Nucleated RBC % 0 02/17/19 06:15: Sodium 135 L, Potassium 4.0, Chloride 101, Carbon Dioxide 31.0, Anion Gap 3 L, BUN 16, Creatinine 1.08, Est GFR (MDRD) Af Amer 86, Est GFR (MDRD) Non-Af 71, BUN/Creatinine Ratio 14.8, Glucose 199 H, Calcium 8.9, Magnesium 2.0 Rhythm: EKG: ECHO: Stress Test: Cardiac Cath: PCI: CT Surgery: Holter monitor: EPS: PPM: CXR: Chest CT Scan: Medical Necessity - Tobacco Use Smoking Status: Former smoker Tobacco Use: Non-smoker Assessment/Plan 1. Atrial flutter: Patient's heart rate is much better controlled with sotalol but still has episodes of increased heart rate with ambulation. I recommended to continue sotalol 80 mg p.o. twice daily, and that we add Cardizem CD 120 mg p.o. daily for additional heart rate control. Patient has a backup pacemaker. Patient's echocardiogram yesterday showed overall intact LV function with mild global LV dysfunction with an EF around 55%, RVSP of 46 mmHg, and mild aortic stenosis. Dobutamine echocardiogram was negative for inducible ischemia. I would not recommend catheterization at this time. Would recommend restarting his Xarelto 10 mg p.o. daily, and following up with us in the [facility] office if his insurance permits it. Patient has [facility] and we are looking into whether he can follow-up with us. 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 Patient has had 4 failed DC cardioversion in the past would not recommend DC cardioversion at this time or going forward. At most the patient may benefit from atrial flutter ablation should his insurance be able to cover it. This would most likely have to be done at [facility]. 2. Obstructive sleep apnea: Patient has signs and symptoms of obstructive sleep apnea, and was noted that he was significantly snoring last evening. Recommend outpatient sleep study. 3. Pacemaker: Patient's pacemaker appears to be functioning normally. Pacemaker interrogation pending. 4. Thank you very much for the opportunity to participate in cardiac care of your patient. If patient's heart rate is controlled with the addition of Cardizem on top of his sotalol with ambulation, the patient may be discharged home. Patient will follow-up with Dr. Bridges going forward if his [facility] insurance permits it. Code Visit Inpatient E&M: 30380 Subs Hosp L2
[2019-02-17 09:11] LABS: Bedside Glucose 219 mg/dL (70-110)
[2019-02-17] MEDS: dilTIAZem CD 120 MG Capsule PO (09:21)
--- NOTE | 2019-02-17 09:52 | CASEMGMT ---
Patient was asking for information on Medicaid. SW printed application and wrote down [facility] address and phone number. SW went to patient's room and he was sleeping. He did not wake up when SW said his name several times. SW left application in patient's room. Dianna LORENZANA
[2019-02-17 11:45] LABS: Bedside Glucose 240 mg/dL (70-110)
--- NOTE | 2019-02-17 11:47 | DCINST_ITS ---
- Discharge Diagnoses Current Active Problems: Current Active and Chronic Problems Atrial flutter with rapid ventricular response (Acute) Hypertension (Chronic) DM type 2 (diabetes mellitus, type 2) (Chronic) Morbid obesity with BMI of 40.0-44.9, adult (Chronic) Chronic atrial fibrillation (Chronic) Status cardiac pacemaker (Chronic) You will use the following diet at home:: Cardiac Your food should be the consistency of: Regular Your liquids should be the consistency of: Regular/Thin Discharge Activity: Return to Normal Activity Weight Bearing Status: Weight bearing as tolerated Call your doctor if you observe: Shortness of breath, Dizziness, Fainting spells, Swelling in the ankles, Chest pain, Increased palpitations (irregular heartbeat) Instructions: What Is Atrial Flutter/Atrial Fibrillation? Allergies/Adverse Reactions: Allergies guaifenesin [From Robitussin] Adverse Reaction (Verified 02/15/19 20:36) Nausea Medications to take at Discharge Citalopram [Celexa] 40 mg PO DAILY 02/15/19 Hydrochlorothiazide 1 tab PO DAILY 02/15/19 Insulin Glargine [Lantus SoloStar Pen] 16 units SQ QHS 02/15/19 Rivaroxaban [Xarelto] 1 tab PO DAILY 02/15/19 Sotalol Hydrochloride [Betapace (Beta Cristian)] 1 tab PO BID 02/15/19 Tamsulosin HCl 1 tab PO DAILY 02/15/19 Diltiazem CD [Cardizem CD] 120 mg PO DAILY 1 Days #30 cap 02/17/19 The following prescriptions were given: Diltiazem CD [Cardizem CD] 120 mg PO DAILY 1 Days #30 cap Transmission Status: Pending to [facility]/pharmacy #[id number] Primary Care Physician: Reji Elias NP-C [Primary Care Provider] - Please follow up with your Primary Care Physician in: one week Test Results: Test results from this visit will be discussed in further detail at your follow- up appointment, if applicable. Please Follow Up With: Jairo Bridges MD When: 2-3 weeks; call office for appointment Proposed Discharge Date: 02/17/19
--- NOTE | 2019-02-17 12:23 | CASEMGMT ---
SW checked back in with patient regarding Medicaid. Patient said he moved in with his daughter and her family. He wanted to know if he had to put their information on the application. SW was able to verify he only needs to provide his information if he is looking for medical card only. ANITA told patient if he completes while he is here SW can fax application to S. He told SW he is illiterate. ANITA told him SW will stop by a little later and complete application with him. Dianna KIM MSW
--- NOTE | 2019-02-17 14:01 | CASEMGMT ---
SW completed Medicaid application with patient. SW then faxed it to [employer]. Application was given back to patient. Dianna KIM MSW
--- NOTE | 2019-02-17 15:28 | PCM.DC.SUM ---
Discharge Date and Diagnosis - Problem List Patient Problems: Active and Suspected Problems Atrial flutter with rapid ventricular response (Acute) Date of Admission: 02/15/19 Date of Discharge: 02/17/19 - Primary Discharge Diagnosis Active and Suspected Problems Atrial flutter with rapid ventricular response (Acute) - Secondary Discharge Diagnosis Chronic Problems Hypertension (Chronic) DM type 2 (diabetes mellitus, type 2) (Chronic) Morbid obesity with BMI of 40.0-44.9, adult (Chronic) Chronic atrial fibrillation (Chronic) Status cardiac pacemaker (Chronic) Hospital Course and Treatment Imaging Results: Diagnostic Data Chest X-Ray 02/16/19 05:55 IMPRESSION: There is elevation of the right hemidiaphragm with increased markings at the right lung base. Electronically Signed: Cuong Anila, at 10:03 EST , Service support , cardiology- Dr Bridges Operations: None Procedures: 2-D Echocardiogram Summary of Care Provided: The patient is a 73 year old M with a past medical history as listed. He was admitted through the ED on 02/15/2019 with a complaint of elevated heart rate. He had gone to see his new primary care doctor and was found to have an elevated heart rate and sent to the ED. He denied any tachycardia or dizziness or chest pain or lower extremity edema. He had run out of his medications for about 3 weeks prior to admission. In the ED he was found to be in atrial flutter with rapid ventricular rate. He was given Cardizem bolus x1 and put on Xarelto. He was admitted and managed for atrial flutter with RVR. Cardiology was consulted. He was continued on the Cardizem drip. Initial troponin was 0.04 and peaked at 0.05. Patient had a stress echocardiogram which was negative for ischemia and had estimated EF of 65%. He had rare PVCs. 2D echocardiogram done showed EF of 55% with stage II diastolic dysfunction and borderline global hypokinesis of the left ventricle with moderately dilated right ventricle. Left atrium was moderately enlarged and bubble study was negative for left to right intra-atrial shunt. RVSP was 46 mmHg. He had mild to moderate aortic stenosis. Patient remained stable and was transitioned off Cardizem drip onto sotalol. He was discharged home on 02/17/2019. Continue taking Xarelto, sotalol per cardiology, Cardizem 120 mg daily was added. He is follow-up with his primary care doctor and cardiology. Patient seen and examined prior to discharge. He had no complaints and felt well. Review of systems otherwise negative. Labs and vitals reviewed. Home medication reviewed and reconciled. o/e: Vital Signs Height 6 ft 1 in Weight: 315 lb 4.176 oz Weight in Pounds 315.3 lbs Pulse Ox 97 Temperature 97.9 F Pulse Rate 72 Respiratory Rate 16 Blood Pressure 124/77 Blood Pressure Position Sitting [] General: Alert, Oriented x3, Cooperative, No apparent distress HEENT: Atraumatic, PERRLA, EOMI, Normocephalic Oral: Moist Mucosa Neck: Supple, No JVD, Negative Carotid Bruits Lungs: Clear to auscultation, Normal air movement, No rhonchi, No wheeze Cardiovascular: Normal S1, Normal S2, No murmurs, irregular rate and rhythm; rate controlled Atrial flutter Abdomen: Bowel Sounds Present, Soft, Non Tender, Non-Distended, No Hepato-splenomegaly Extremities: No clubbing, No cyanosis, No edema, Capillary Refill Less than 3 Seconds Skin: No rashes, No breakdown Musculoskeletal: No Tenderness to Palpation of Joints or Extremities Lymphatic: No Cervical, Supraclavicular, or Inguinal Adenopathy Neurological: Cranial nerves II-XII grossly intact, Neuro grossly intact, Motor Exam 5/5 strength throughout Psych/Mental Status: Normal Affect, Appropriate, Alert and oriented to time, place, person, mood and affect Plan as above. Patient Problems: Active and Suspected Problems Atrial flutter with rapid ventricular response (Acute) - Physical Exam Vitals/I&O's: Vital Signs Temp Pulse Resp BP Pulse Ox 97.9 F 72 16 124/77 H 97 02/17/19 11:34 02/17/19 12:09 02/17/19 11:34 02/17/19 11:34 02/17/19 11:34 Oxygen Delivery Method Room Air Weight: 315 lb 4.176 oz Body Mass Index (BMI) 42.0 Intake and Output for Last 24 Hours 02/15/19 02/16/19 02/17/19 23:59 23:59 23:59 Intake Total 31.50 / 37.50 1352.85 / 1352.85 800 / 800 Output Total 300 / 300 250 / 250 Balance -268.50 / -262.50 1102.85 / 1102.85 800 / 800 Laboratory Results 02/16/19 22:09: POC Glucose 174 H 02/17/19 06:15: WBC 8.0, RBC 5.75, Hgb 15.6, Hct 48.4, MCV 84.2, MCH 27.1, MCHC 32.2, RDW Std Deviation 45.7 H, RDW Coeff of Naila 15.1 H, Plt Count 205, MPV 10.7, Immature Gran % (Auto) 0.600, Neut % (Auto) 62.2, Lymph % (Auto) 26.5, [place] % (Auto) 8.0, Eos % (Auto) 1.9, Baso % (Auto) 0.8, Absolute Neuts (auto) 5.0, Absolute Lymphs (auto) 2.12, Nucleated RBC % 0 02/17/19 06:15: Sodium 135 L, Potassium 4.0, Chloride 101, Carbon Dioxide 31.0, Anion Gap 3 L, BUN 16, Creatinine 1.08, Estim Creat Clear Calc 69.87, Est GFR (MDRD) Af Amer 86, Est GFR (MDRD) Non-Af 71, BUN/Creatinine Ratio 14.8, Glucose 199 H, Calcium 8.9, Magnesium 2.0 02/17/19 08:48: POC Glucose 219 H 02/17/19 11:38: POC Glucose 240 H Diagnostic Data Chest X-Ray 02/16/19 05:55 IMPRESSION: There is elevation of the right hemidiaphragm with increased markings at the right lung base. Electronically Signed: Cuong High, at 10:03 EST , Service support , Current Medications Acetaminophen (Tylenol) 650 mg PO Q6H PRN PRN PRN Reason: Pain Score 1-3/Temp > 100.7 F Al Hydroxide/Mg Hydroxide (Mylanta Ii) 30 ml PO Q6H PRN PRN PRN Reason: Gastric Burning Citalopram Hydrobromide (Celexa) 40 mg PO DAILY [facility] Last Admin: 02/17/19 09:00 Dose: 40 mg Documented by: Diltiazem HCl (Cardizem Cd) 120 mg PO DAILY [facility] Last Admin: 02/17/19 09:21 Dose: 120 mg Documented by: Glucagon () 1 mg IM .X1 PRN PRN Reason: Hypoglycemia Hydrochlorothiazide () 12.5 mg PO DAILY [facility] Last Admin: 02/17/19 09:00 Dose: 12.5 mg Documented by: Sodium Chloride () 250 mls @ 15 mls/hr IV .[id number] PRN PRN Reason: Saline Flush Sodium Chloride () 250 mls @ 15 mls/hr IV .[id number] PRN PRN Reason: Additional IVPB Infusion Dextrose (Dextrose 10%-Water) 250 mls @ 999 mls/hr IV .Q16M PRN; Protocol PRN Reason: HYPOGLYCEMIA Insulin Glargine (Lantus ([facility])) 16 units SC QHS [facility] Last Admin: 02/16/19 22:12 Dose: 16 units Documented by: Insulin Human Lispro (Humalog Kwikpen ([facility])) 0 unit SC [facility]; Protocol Last Admin: 02/17/19 13:17 Dose: 2 unit Documented by: Loperamide HCl (Imodium) 2 mg PO Q4H PRN PRN PRN Reason: Diarrhea Last Admin: 02/16/19 11:13 Dose: 2 mg Documented by: Magnesium Hydroxide (Milk Of Magnesia) 30 ml PO DAILY PRN PRN PRN Reason: Constipation Melatonin (Melatonin) 3 mg PO QHS PRN PRN PRN Reason: INSOMNIA Last Admin: 02/16/19 00:13 Dose: 3 mg Documented by: Nitroglycerin (Nitrostat) 0.4 mg SUBLINGUAL Q5M PRN PRN Reason: CARDIAC/CHEST PAIN Ondansetron HCl (Zofran) 4 mg IV Q8H PRN PRN PRN Reason: NAUSEA/VOMITING Rivaroxaban (Xarelto) 20 mg PO DAILY@1700 [facility] Senna/Docusate Sodium (Senokot-S, Kesha-Colace) 2 tablet PO BID PRN PRN PRN Reason: Constipation Sodium Chloride () 10 - 40 ml IV UD PRN PRN Reason: SALINE FLUSH Last Admin: 02/15/19 21:04 Dose: 10 ml Documented by: Sotalol HCl (Betapace (G)) 80 mg PO BID [facility] Last Admin: 02/17/19 09:00 Dose: 80 mg Documented by: Tamsulosin HCl (Flomax) 0.4 mg PO DAILY@0830 [facility] Last Admin: 02/17/19 09:00 Dose: 0.4 mg Documented by: Discharge Diet: Low fat/ Low Cholesterol Discharge Activity: Return to Normal Activity Weight Bearing Status: Weight bearing as tolerated Call your doctor if you observe: Shortness of breath, Dizziness, Fainting spells, Swelling in the ankles, Chest pain, Increased palpitations (irregular heartbeat) Home Medications: Medications to take at Discharge Citalopram [Celexa] 40 mg PO DAILY 02/15/19 Hydrochlorothiazide 1 tab PO DAILY 02/15/19 Insulin Glargine [Lantus SoloStar Pen] 16 units SQ QHS 02/15/19 Rivaroxaban [Xarelto] 1 tab PO DAILY 02/15/19 Sotalol Hydrochloride [Betapace (Beta Cristian)] 1 tab PO BID 02/15/19 Tamsulosin HCl 1 tab PO DAILY 02/15/19 Diltiazem CD [Cardizem CD] 120 mg PO DAILY 1 Days #30 cap 02/17/19 Following Prescrptions Were Given to Patient: Diltiazem CD [Cardizem CD] 120 mg PO DAILY 1 Days #30 cap Transmission Status: Received by [facility]/pharmacy #[id number] Primary Care Physician: Reji Elias NP-C [Primary Care Provider] - Please follow up with your Primary Care Physician in: one week Please Follow Up With: Jairo Bridges MD When: 2-3 weeks; call office for appointment Please Follow Up With: Reji Elias NP-C Patient Instructions: What Is Atrial Flutter/Atrial Fibrillation? Disposition: Home Minutes spent on discharge:: 40 Patient Condition:: Stable Medical Necessity - Tobacco Use Smoking Status: Former smoker Tobacco Use: Non-smoker Meaningful Use Info Meaningful Use Diagnoses (Choose all that apply): None applicable Code Visit Inpatient E&M: 41176 Disch Hosp
[2019-02-17 17:10] LABS: Bedside Glucose 216 mg/dL (70-110)
[2019-02-17] MEDS: Rivaroxaban 20 MG Tablet PO (17:20)
== END 2019-02-17 18:33 | disposition home or self-care (01) | DRG 309 ==
PROVIDERS: Internal Medicine; Family Provider Nurse Practitioner Primary Care; PCP Nurse Practitioner Primary Care; Visit Provider Student in an Organized Health Care Education/Training Program
DX: I48.92 Unspecified atrial flutter (principal); Z68.41 Body mass index [BMI] 40.0-44.9, adult; I48.19 Other persistent atrial fibrillation; I35.0 Nonrheumatic aortic (valve) stenosis; I10 Essential (primary) hypertension; E11.9 Type 2 diabetes mellitus without complications; E66.01 Morbid (severe) obesity due to excess calories; E83.42 Hypomagnesemia; Z79.01 Long term (current) use of anticoagulants; Z95.0 Presence of cardiac pacemaker; Z79.4 Long term (current) use of insulin; Z79.899 Other long term (current) drug therapy; Z87.891 Personal history of nicotine dependence
CPT/HCPCS: 36415; 71045; 80048; 80053; 82962; 83735; 84484; 85025; 93005; 93017; 93306; 93350; 94762; 99251; J7040; Q9957; A4216; C8928; C8929; G0463

== ENCOUNTER → 2020-05-09 11:54 | Outpatient (CLI) | payer MEDICARE, MEDICAID, SELFPAY ==
[2020-05-09 10:52] VITALS: BMI 41.2
--- NOTE | 2020-05-09 12:20 | RAD_ITS ---
STUDY: X-RAY CHEST REASON FOR EXAM: Male, 75 years old. Pacemaker eval. TECHNIQUE: Frontal and lateral views of the chest. COMPARISON: 02/16/2019. FINDINGS: The lungs are clear and expanded. Elevated right hemidiaphragm. There is no demonstrated pleural abnormality. Normal size heart. Pacemaker is seen with leads terminating in the right atrium and right ventricle. Normal mediastinum and lynda. Normal visualized pulmonary arteries. Normal visualized aortic arch and descending thoracic aorta. There are diffuse degenerative changes of the visualized thoracic spine. Normal visualized ribs, clavicles, and shoulders. There is no demonstrated abnormality of the visualized soft tissue structures of the upper abdomen. RAD/Chest PA and Lateral IMPRESSION: No acute chest disease. Electronically Signed: Beau Napier MD at 18:00 EDT , Service support ,
== END ==
PROVIDERS: PCP Nurse Practitioner Primary Care; Referring Provider Nurse Practitioner Family; Visit Provider Nurse Practitioner Family
DX: Z95.0 Presence of cardiac pacemaker (principal)
CPT/HCPCS: 71046

== ENCOUNTER 2020-07-31 12:37 | Emergency (ER) | payer MEDICARE, MEDICAID, SELFPAY ==
[2020-05-09 10:52] VITALS: BMI 41.2
[2020-07-31 12:37] VITALS: BP 135/79; PULSE 68; RESP 16; TEMP 36.6; O2SAT 98; BMI 41.3
--- NOTE | 2020-07-31 12:56 | EKG12_ITS ---
Test Reason : SOB Blood Pressure : / mmHG Vent. Rate : 066 BPM Atrial Rate : 066 BPM P-R Int : 188 ms QRS Dur : 094 ms QT Int : 432 ms P-R-T Axes : 053 097 078 degrees QTc Int : 452 ms Normal sinus rhythm Rightward axis Low voltage QRS Incomplete right bundle branch block Nonspecific ST and T wave abnormality Abnormal ECG Confirmed by HARLEY SANDHU, ARMEN ([id number]), videotape editor SUREKHA NAYLOR ([id number]) on 08/02/2020 12:32:45 PM Referred By: DEMETRIUS/SERGIO Confirmed By:ARMEN SOUZA MD
--- NOTE | 2020-07-31 12:59 | EDS_ITS ---
HPI History of Present Illness Chief Complaint: Shortness of Breath Informant: patient Onset/Context/Timing Onset: Days Context: gradual Timing: Intermittent Current Severity: Mild Maximum Severity: Mild Associated Symptoms Negative for cough Narrative Narrative: The patient is a 75-year-old male with medical history significant for atrial fibrillation who presents to the emergency department with intermittent dyspnea. The patient states that he has been in his normal state of health. Is been compliant with his medications. He states from time to time, he will be doing basic things while sitting. He states that he noticed that he will be holding his breath. He was in brief and seems like it is improved. States is never really had antibiotics before. He denies chest pain. He does admit to some mild orthopnea, but states is chronic. He states he is never had a sleep study. 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 Longstanding persistent atrial fibrillation Morbid obesity with BMI of 40.0-44.9, adult Snoring Home Medications citalopram 40 mg PO DAILY 02/15/19 [History Last Taken Unknown] tamsulosin 1 tab PO DAILY 02/15/19 [History Last Taken 02/15/19] diphenhydramine HCl 25 mg tablet 25 mg PO QHS PRN 03/08/19 [History Last Taken Unknown] aspirin 81 mg tablet,delayed release 81 mg PO DAILY 11/01/19 [History Last Taken Unknown] atorvastatin 20 mg tablet 20 mg PO QHS #30 tab 11/01/19 [Rx Last Taken Unknown] diltiazem HCl 120 mg capsule,extended release 24 hr 120 mg PO DAILY #90 cap 11/01/19 [Rx Last Taken Unknown] hydrochlorothiazide 12.5 mg capsule 12.5 mg PO DAILY #90 cap 11/01/19 [Rx Last Taken Unknown] insulin glargine 100 unit/mL (3 mL) subcutaneous pen 32 unit SC QHS ml 11/01/19 [History Last Taken Unknown] lisinopril 2.5 mg tablet 2.5 mg PO DAILY #30 tab 11/01/19 [Rx Last Taken Unknown] sotalol 80 mg tablet 80 mg PO BID #180 tab 11/01/19 [Rx Last Taken Unknown] rivaroxaban 20 mg tablet 20 mg PO QPM #90 tab 04/19/20 [Rx Last Taken Unknown] albuterol sulfate [Ventolin HFA] 2 puff INHALATION Q4H PRN PRN #1 inhaler 07/31/20 [Rx Last Taken Unknown] Allergy/AdvReac Type Severity Reaction Status Date / Time codeine AdvReac Intermediate Unknown Verified 07/31/20 12:40 guaifenesin [From Robitussin] AdvReac Nausea Verified 07/31/20 12:40 Family History Father Diabetes Brother Rectal cancer Mother Stomach cancer Surgical History History of cardiac radiofrequency ablation (RFA) (09/15/19) History of cholecystectomy Status cardiac pacemaker Social History Smoking Status: Former smoker alcohol intake: current alcohol intake frequency: holidays/special occasions only substance use type: does not use caffeine: No ROS ROS ED Constitutional Constitutional ED: Denies chills or fever(s) Eyes Eyes: Denies blurry vision or change in vision ENT ENT ED: Denies ear pain or sore throat Cardiovascular Cardiovascular: Denies chest pain or palpitations Respiratory/Chest Respiratory/Chest: Reports dyspnea Gastrointestinal Gastrointestinal: Denies abdominal pain, nausea or vomiting Genitourinary Genitourinary ED: Denies dysuria or urinary frequency Musculoskeletal Musculoskeletal: Denies arthralgias or myalgias Integumentary Denies rash Neurologic Neurologic: Denies headache(s) or paresthesias Psychiatric Psychiatric: Denies anxiety or depression Endocrine Endocrinology: Denies polydipsia or polyuria Allergic/Immunologic Allergic/Immunologic ED: Denies urticaria EXAM Physical Exam Const Vital Signs: 07/31/20 12:37 Temperature 97.8 F Temperature Source Temporal Pulse Rate 68 Respiratory Rate 16 Blood Pressure 135/79 H Blood Pressure Mean 97 Pulse Ox 98 Oxygen Delivery Method Room Air Positive well nourished and well developed General Appearance ED: well developed HEENT Reports normocephalic, head/scalp atraumatic and moist mucous membranes Eyes PERRL and EOMs intact bilaterally Neck no lymphadenopathy and supple General: Negative for tenderness Chest Wall inspection of chest normal Resp normal respiratory effort and clear to auscultation bilaterally Cardio regular rate, regular rhythm and no murmurs GI normal to inspection, nondistended, normoactive bowel sounds Palpation: Negative for tender, guarding or rebound tenderness present Back/Spine no CVA tenderness Cervical Spine: Negative for cervical spine tenderness Thoracic Spine / Upper Back: Negative for thoracic spinal tenderness Extremity normal to inspection General Extremety ED: Negative for tenderness Neuro oriented x3 and CN's II-XII intact bilaterally Neuro Narrative: No focal deficits appreciated. Sensorium / Orientation: alert Psych mental status grossly normal Skin no rashes or lesions noted, no wounds and skin turgor normal MDM MDM MDM Narrative Medical decision making narrative: The patient presents with intermittent shortness of breath. He has had no chest pain. He is not hypoxic or tachypneic. It does sound as if he is a component of sleep apnea, but he is even having these symptoms when he is sitting at rest. Broad metabolic work-up was pursued. EKG was obtained. It demonstrates sinus rhythm without evidence of acute ischemia. High sensitive troponin was within normal limits. Chest x- ray reviewed by both myself and the radiologist shows elevated hemidiaphragm on the right which is unchanged. There is no focal infiltrative process. On reevaluation, the patient is resting comfortable without hypoxia. I do feel that he would benefit from an outpatient sleep study. He is in no distress. He will be discharged home. Impression 1. Dyspnea Lab Data Attestation: I reviewed the patient's lab results. Labs: Laboratory Results - last 24 hr 07/31/20 07/31/20 07/31/20 13:15 13:15 13:15 WBC 9.1 RBC 5.83 Hgb 15.4 Hct 48.8 MCV 83.7 MCH 26.4 L MCHC 31.6 L RDW Std Deviation 44.0 H RDW Coeff of Naila 14.6 Plt Count 197 MPV 10.6 Immature Gran % (Auto) 0.700 Neut % (Auto) 72.9 H Lymph % (Auto) 16.7 L [place] % (Auto) 7.8 Eos % (Auto) 1.2 Baso % (Auto) 0.7 Absolute Neuts (auto) 6.6 Absolute Lymphs (auto) 1.51 Nucleated RBC % 0 Sodium 137 Potassium 4.3 Chloride 99 Carbon Dioxide 33.0 H Anion Gap 5 BUN 14 Creatinine 1.03 Estim Creat Clear Calc 73.16 Est GFR (MDRD) Af Amer 91 Est GFR (MDRD) Non-Af 75 BUN/Creatinine Ratio 13.6 Glucose 349 H Calcium 9.7 Total Bilirubin 0.70 AST 16 ALT 26 Alkaline Phosphatase 83 Troponin I High Sens 77.9 B-Natriuretic Peptide 18.6 Total Protein 8.0 Albumin 3.8 Globulin 4.2 Albumin/Globulin Ratio 0.9 Radiography Diagnostic Testing: Radiology Impression Chest X-Ray 07/31/20 13:05 IMPRESSION: No significant intrathoracic active disease noted unchanged since April 2020. Electronically Signed: Lucho Hermosillo, at 13:21 EDT Tel , Service support , Discharge Plan Triage Chief Complaint: Shortness of Breath ED Provider: Betito Still Dx/Rx/DC Orders Instructions: ED Dyspnea Prescriptions: New albuterol sulfate [Ventolin HFA] 1 INHALER inhaler 2 puff inhalation Q4H PRN PRN (Reason: Wheezing) Qty: 1 RF: 0 No Action diphenhydramine HCl [Benadryl Allergy] 25 mg tablet 25 mg PO QHS PRNRF: 0 aspirin [Adult Low Dose Aspirin] 81 mg tablet,delayed release (DR/EC) 81 mg PO DAILY RF: 0 atorvastatin 20 mg tablet 20 mg PO QHS Qty: 30 RF: 11 diltiazem HCl 120 mg capsule,extended release 24hr 120 mg PO DAILY Qty: 90 RF: 3 hydrochlorothiazide 12.5 mg capsule 12.5 mg PO DAILY Qty: 90 RF: 3 lisinopril 2.5 mg tablet 2.5 mg PO DAILY Qty: 30 RF: 11 sotalol 80 mg tablet 80 mg PO BID Qty: 180 RF: 3 tamsulosin 0.4 MG capsule 1 tab PO DAILY RF: 0 citalopram 40 MG tablet 40 mg PO DAILY RF: 0 insulin glargine 100 unit/mL (3 mL) insulin pen 32 unit SC QHS RF: 0 Xarelto 20 mg tablet 20 mg PO QPM Qty: 90 RF: 3 Primary Care Provider: Reji Elias NP Referrals: Reji Elias NP, [facility] [Primary Care Provider] -
--- NOTE | 2020-07-31 13:05 | RAD_ITS ---
STUDY: X-RAY CHEST REASON FOR EXAM: Male, 75 years old. sob TECHNIQUE: 1 view COMPARISON: 05/09/2020. FINDINGS: Again noted is elevation of the right hemidiaphragm with minimal linear atelectasis in the heavy markings in the right base. The costophrenic angles are clear no pleural effusion or pneumothorax. In general there is poor inspiration. There is a pacemaker with 2 leads in position. The trachea is in the midline the visualized bony structures are intact. RAD/Chest 1 View (Portable) IMPRESSION: No significant intrathoracic active disease noted unchanged since April 2020. Electronically Signed: Lucho Hermosillo, at 13:21 EDT Tel , Service support ,
[2020-07-31 13:26] LABS: Absolute Lymphocyte Count 1.51 X10^3/uL (0.83-4.51); Absolute Neutrophil Count 6.6 X10^3/uL (2.0-7.7); Basophil# 0.06 X10^3/uL; Basophil% 0.7 % (0-1); Eosinophil# 0.11 X10^3/uL; Eosinophils% 1.2 % (0-5); Hematocrit 48.8 % (40-54); Hemoglobin 15.4 g/dL (13.0-16.5); Lymphocyte # 1.51 X10^3/ul (0.83-4.51); Lymphocyte % 16.7 % (19-41); Mean Corp Hgb Conc 31.6 g/dL (32-36); Mean Corpuscular Hgb 26.4 pg (27.0-32.0); Mean Corpuscular Volume 83.7 fL (80-94); Mean Platelet Vol. 10.6 fl (6.2-12.0); Monocyte# 0.71 X10^3/uL; Monocyte% 7.8 % (0-10); NRBC Flagged by Analyzer 0 % (0-5); Neutrophil % 72.9 % (47-70); Platelet Count 197 K/mm3 (150-450); RBC Distribution Width CV 14.6 % (11.6-14.6); Red Blood Count 5.83 M/mm3 (4.6-6.2); White Blood Count 9.1 K/mm3 (4.4-11.0)
[2020-07-31 13:42] LABS: ALB/GLOB Ratio 0.9 RATIO (0.9-2.4); AST(SGOT) 16 U/L (15-37); Alanine Aminotransfer ALT/SGPT 26 U/L (16-61); Albumin, Serum 3.8 g/dL (3.2-5.0); Alkaline Phosphatase 83 U/L (45-117); Anion Gap 5 (5-15); BUN 14 mg/dL (7-18); BUN/Creat Ratio 13.6 RATIO (10-20); Calcium,Total 9.7 mg/dL (8.5-10.1); Chloride 99 mmol/L (98-107); Creatinine, Serum 1.03 mg/dL (0.70-1.30); EST Glomerular Filtration Rate 75 mL/min (>60); Est Glom Filt Rate - Afr Amer 91 mL/min (>60); Estimated Creatinine Clearance 73.16 ml/min; Globulin 4.2 g/dL (2.2-4.2); Glucose 349 mg/dL (74-106); Potassium 4.3 mmol/L (3.5-5.1); Sodium Level 137 mmol/L (136-145); Troponin-I HS 77.9 pg/mL (3.0-78.5)
[2020-07-31 13:47] LABS: BNP,B-Type NATRIURETIC PEPTIDE 18.6 pg/mL (0-100)
== END 2020-07-31 14:08 | disposition home or self-care (01) ==
PROVIDERS: Emergency Provider Emergency Medicine; PCP Nurse Practitioner Primary Care
DX: R06.00 Dyspnea, unspecified (principal); E66.01 Morbid (severe) obesity due to excess calories; Z68.41 Body mass index [BMI] 40.0-44.9, adult; Z87.891 Personal history of nicotine dependence
CPT/HCPCS: 71045; 80053; 83880; 84484; 85025; 93005; 99285; A4216

== ENCOUNTER → 2020-09-27 11:24 | Outpatient (CLI) | payer MEDICARE, MEDICAID, SELFPAY ==
[2020-09-27 12:09] LABS: Anion Gap 5 (5-15); Chloride 99 mmol/L (98-107); Potassium 3.6 mmol/L (3.5-5.1); Sodium Level 135 mmol/L (136-145)
== END ==
PROVIDERS: Referring Provider Nurse Practitioner Adult Health; Visit Provider Nurse Practitioner Adult Health
DX: E11.9 Type 2 diabetes mellitus without complications (principal); I10 Essential (primary) hypertension
CPT/HCPCS: 36415; 80051

== ENCOUNTER → 2020-10-19 11:29 | Outpatient (CLI) | payer MEDICARE, MEDICAID, SELFPAY ==
[2020-10-19 12:07] LABS: Hematocrit 46.2 % (40-54); Hemoglobin 14.5 g/dL (13.0-16.5); Mean Corp Hgb Conc 31.4 g/dL (32-36); Mean Corpuscular Hgb 26.5 pg (27.0-32.0); Mean Corpuscular Volume 84.3 fL (80-94); Mean Platelet Vol. 11.8 fl (6.2-12.0); Platelet Count 195 K/mm3 (150-450); RBC Distribution Width CV 14.7 % (11.6-14.6); RBC Distribution Width SD 44.9 fl (35.1-43.9); Red Blood Count 5.48 M/mm3 (4.6-6.2); White Blood Count 8.4 K/mm3 (4.4-11.0)
[2020-10-19 12:24] LABS: Anion Gap 7 (5-15); BUN 23 mg/dL (7-18); BUN/Creat Ratio 21.3 RATIO (10-20); Calcium,Total 9.2 mg/dL (8.5-10.1); Chloride 101 mmol/L (98-107); Creatinine, Serum 1.08 mg/dL (0.70-1.30); EST Glomerular Filtration Rate 71 mL/min (>60); Est Glom Filt Rate - Afr Amer 86 mL/min (>60); Glucose 275 mg/dL (74-106); Potassium 3.8 mmol/L (3.5-5.1); Sodium Level 137 mmol/L (136-145)
== END ==
DX: R60.0 Localized edema (principal); Z79.01 Long term (current) use of anticoagulants
CPT/HCPCS: 36415; 80048; 85027

== ENCOUNTER → 2020-11-22 13:00 | Outpatient (CLI) | payer MEDICARE, MEDICAID, SELFPAY | PROVIDERS: Visit Provider Nurse Practitioner Adult Health | DX: G47.10 Hypersomnia, unspecified (principal) ==

== ENCOUNTER → 2020-12-25 12:05 | Outpatient (CLI) | payer MEDICARE, MEDICAID, SELFPAY ==
[2020-12-25 12:39] LABS: Basophil# 0.04 X10^3/uL; Basophil% 0.5 % (0-1); Eosinophil# 0.15 X10^3/uL; Hematocrit 46.5 % (40-54); Hemoglobin 14.7 g/dL (13.0-16.5); Lymphocyte % 23.7 % (19-41); Mean Corp Hgb Conc 31.6 g/dL (32-36); Mean Corpuscular Hgb 26.3 pg (27.0-32.0); Mean Corpuscular Volume 83.2 fL (80-94); Mean Platelet Vol. 10.9 fl (6.2-12.0); Monocyte# 0.57 X10^3/uL; Monocyte% 7.5 % (0-10); NRBC Flagged by Analyzer 0 % (0-5); Neutrophil # 5.02 X10^3/uL (2.7-7.7); Neutrophil % 65.9 % (47-70); Platelet Count 200 K/mm3 (150-450); RBC Distribution Width CV 15.9 % (11.6-14.6); RBC Distribution Width SD 47.8 fl (35.1-43.9); Red Blood Count 5.59 M/mm3 (4.6-6.2); White Blood Count 7.6 K/mm3 (4.4-11.0)
[2020-12-25 13:11] LABS: ALB/GLOB Ratio 0.9 RATIO (0.9-2.4); AST(SGOT) 17 U/L (15-37); Alanine Aminotransfer ALT/SGPT 30 U/L (16-61); Albumin, Serum 3.6 g/dL (3.2-5.0); Alkaline Phosphatase 86 U/L (45-117); Anion Gap 6 (5-15); BUN 18 mg/dL (7-18); BUN/Creat Ratio 18.4 RATIO (10-20); Calcium,Total 9.4 mg/dL (8.5-10.1); Chloride 103 mmol/L (98-107); Creatinine, Serum 0.98 mg/dL (0.70-1.30); EST Glomerular Filtration Rate 79 mL/min (>60); Est Glom Filt Rate - Afr Amer 96 mL/min (>60); Globulin 4.2 g/dL (2.2-4.2); Glucose 128 mg/dL (74-106); Potassium 4.1 mmol/L (3.5-5.1); Protein, Total 7.8 g/dL (6.4-8.2); Sodium Level 138 mmol/L (136-145)
== END ==
PROVIDERS: Referring Provider Nurse Practitioner Adult Health; Visit Provider Nurse Practitioner Adult Health
DX: F03.91 Unspecified dementia, unspecified severity, with behavioral disturbance (principal)
CPT/HCPCS: 36415; 80053; 85025

== ENCOUNTER → 2020-12-27 21:40 | Outpatient (CLI) | payer MEDICARE, MEDICAID, SELFPAY | PROVIDERS: Referring Provider Nurse Practitioner Acute Care; Visit Provider Nurse Practitioner Acute Care | DX: G47.33 Obstructive sleep apnea (adult) (pediatric) (principal) | CPT/HCPCS: 95810 ==

== ENCOUNTER → 2020-12-28 06:14 | Outpatient (CLI) | payer MEDICARE, MEDICAID, SELFPAY ==
[2020-12-28 07:38] LABS: T4 Free Direct 1.18 ng/dL (0.76-1.46); Thyroid Stim Hormone (TSH) 3.51 uIU/mL (0.358-3.74)
== END ==
PROVIDERS: Referring Provider Nurse Practitioner Adult Health; Visit Provider Nurse Practitioner Adult Health
DX: R53.83 Other fatigue (principal); E11.9 Type 2 diabetes mellitus without complications; R06.02 Shortness of breath
CPT/HCPCS: 36415; 84439; 84443

== ENCOUNTER 2021-02-20 21:33 | Outpatient (CLI) | payer MEDICARE, MEDICAID, SELFPAY | END 2021-02-20 23:59 | disposition short-term general hospital (02) | PROVIDERS: Referring Provider Nurse Practitioner Acute Care; Visit Provider Nurse Practitioner Acute Care | DX: G47.33 Obstructive sleep apnea (adult) (pediatric) (principal) | CPT/HCPCS: 95811 ==

== ENCOUNTER → 2021-03-28 | Outpatient (CLI) | payer MEDICARE, MEDICAID, SELFPAY ==
[2021-03-28 10:12] LABS: Anion Gap 4 (5-15); BUN 23 mg/dL (7-18); BUN/Creat Ratio 21.9 RATIO (10-20); Calcium,Total 9.5 mg/dL (8.5-10.1); Chloride 101 mmol/L (98-107); Creatinine, Serum 1.05 mg/dL (0.70-1.30); EST Glomerular Filtration Rate 73 mL/min (>60); Est Glom Filt Rate - Afr Amer 89 mL/min (>60); Glucose 197 mg/dL (74-106); Potassium 3.5 mmol/L (3.5-5.1); Sodium Level 136 mmol/L (136-145)
== END | disposition home or self-care (01) ==
DX: I48.3 Typical atrial flutter (principal)
CPT/HCPCS: 36415; 80048

== ENCOUNTER 2021-04-15 12:43 | Outpatient (CLI) | payer MEDICARE, MEDICAID, SELFPAY ==
--- NOTE | 2021-04-15 12:50 | VDLE_ITS ---
Reason For Study: pain RIGHT GSV is normal. CFV is compressible, spontaneous, phasic, competent and demonstrates normal augmentation. FV is compressible, spontaneous, phasic, competent and demonstrates normal augmentation. POP V is compressible, spontaneous, phasic, competent and demonstrates normal augmentation. T/P Trunk is compressible. PTV is compressible. RT PerV is compressible. Procedure This is a venous duplex using B-mode, color flow and spectral Doppler. Exam performed in department. The exam was abbreviated due to the COVID 19 protocol. The exam was diagnostic. A preliminary report was called and/or faxed to Elliot Morel. VL/Venous Duplex US, Unilateral Interpretation Summary Deep veins of the right lower extremity are patent and compressible segmentally . There is no evidence of right lower extremity deep vein thrombosis. Valvular competence nicolette ears intact within the proximal deep venous system on the right . The right great saphenous vein a ppears patent and compressible segmentally. Ordering Physician: Elliot Morel Performed By: Yoav Rosen RVT
== END 2021-04-15 23:59 | disposition home or self-care (01) ==
LOC: CVS 12:45
PROVIDERS: Referring Provider Physician Assistant Surgical; Visit Provider Physician Assistant Surgical
DX: M79.661 Pain in right lower leg (principal); M17.11 Unilateral primary osteoarthritis, right knee
CPT/HCPCS: 93971

== ENCOUNTER → 2021-06-14 | Outpatient (CLI) | payer MEDICARE, MEDICAID, SELFPAY ==
--- NOTE | 2021-06-14 12:28 | RAD_ITS ---
STUDY: ABDOMEN X-RAY SERIES--3 VIEWS OF 1239 HOURS ON 06/14/2021 REASON FOR EXAM: 76-year-old male with symptoms of both diarrhea and constipation. TECHNIQUE: A 3 view abdomen series was performed per protocol. COMPARISON: None. FINDINGS: Multiple pelvic bones and hips. Moderate osteophytic degenerative changes of the lumbar spine. No abdominal organomegaly.. Findings suggestive of a previous cholecystectomy. Mild constipation. Otherwise, unremarkable intestinal gas pattern. No abnormal intra-abdominal calcifications or other collections of air. RAD/Abdomen Single View IMPRESSION: 1. Mild constipation. 2. Otherwise, unremarkable intestinal gas pattern. 3. No abdominal organomegaly. 4. Previous cholecystectomy. 5. No abnormal intra-abdominal calcifications or collections of air. Electronically Signed: Elbert Melissa MD at 17:27 EDT ,
== END | disposition home or self-care (01) ==
LOC: RAD 12:27
PROVIDERS: Visit Provider Nurse Practitioner Adult Health
DX: R19.8 Other specified symptoms and signs involving the digestive system and abdomen (principal)
CPT/HCPCS: 74018

== ENCOUNTER → 2021-07-11 | Outpatient (CLI) | payer OTHER, MEDICAID, SELFPAY | END | disposition home or self-care (01) | LOC: SL 11:36 | PROVIDERS: Referring Provider Internal Medicine Critical Care Medicine; Visit Provider Internal Medicine Critical Care Medicine | DX: G47.33 Obstructive sleep apnea (adult) (pediatric) (principal) | CPT/HCPCS: 98960; G0463 ==

== ENCOUNTER → 2021-07-12 | Outpatient (CLI) | payer OTHER, MEDICAID, SELFPAY ==
[2021-07-12 08:21] LABS: AST(SGOT) 16 U/L (15-37); Alanine Aminotransfer ALT/SGPT 32 U/L (16-61); Albumin, Serum 3.8 g/dL (3.2-5.0); Alkaline Phosphatase 77 U/L (45-117); Anion Gap 5 (5-15); BUN 24 mg/dL (7-18); Calcium,Total 9.1 mg/dL (8.5-10.1); Chloride 104 mmol/L (98-107); Creatinine, Serum 0.92 mg/dL (0.70-1.30); EST Glomerular Filtration Rate 85 mL/min (>60); Est Glom Filt Rate - Afr Amer 103 mL/min (>60); Glucose 180 mg/dL (74-106); Potassium 3.9 mmol/L (3.5-5.1); Protein, Total 7.8 g/dL (6.4-8.2); Sodium Level 136 mmol/L (136-145)
[2021-07-12 08:25] LABS: Hemoglobin A1c 8.3 % (3.8-5.6)
== END | disposition home or self-care (01) ==
DX: E11.9 Type 2 diabetes mellitus without complications (principal)
CPT/HCPCS: 36415; 80053; 83036

== ENCOUNTER → 2021-07-22 | Outpatient (CLI) | payer OTHER, MEDICAID, SELFPAY ==
--- NOTE | 2021-07-22 10:54 | ART_ITS ---
Reason For Study: Neuralgia Procedure A bilateral lower extremity continuous wave Doppler with analog waveform analysis,segmental pressures,and ankle brachial indexes without exercise. Left Segmental Pressures Left brachial= 147mmHg. Left posterior tibial artery = 163mmHg. Left dorsalis pedis artery = 162mmHg. Left digit = 79 mmHg. The left dorsalis pedis waveforms are triphasic. The left posterior tibial artery waveforms are triphasic. Right Segmental Pressures Right brachial= 137mmHg. Right posterior tibial artery = 150mmHg. Right dorsalis pedis artery = 155mmHg. Right digit = 111 mmHg. The right dorsalis pedis waveforms are triphasic. The right posterior tibial artery waveforms are triphasic. Indices The right ankle brachial index by the dorsalis pedis is 1.05. The right ankle brachial index by the posterior tibial artery is 1.02. The right digital-brachial index is 0.76. The left ankle brachial index by the dorsalis pedis is 1.10. The left ankle brachial index by the posterior tibial artery is 1.11. The left digital-brachial index is 0.54. VL/Lower Ext Art Exam w/o Exercis Interpretation Summary Triphasic Doppler waveforms are noted at ankle level bilaterally. Pulse-volume recordings appear diminished at digital level on the left, but satisfactory at all other levels b ilaterally. Resting ankle-brachial indices are normal bilaterally. The right digital-brachial index is normal. The left digital-brachial index is mildly diminished. Arterial flow appears normal at ankle level bilaterally, and at digital level o n the right. There is evidence of mild arterial occlusive disease at digital level on the left. Ordering Physician: Jairo Goins Referring Physician: [facility] Performed By: Jud Perry RVT
== END | disposition home or self-care (01) ==
LOC: CVS 10:51
PROVIDERS: Referring Provider Podiatrist; Visit Provider Podiatrist
DX: I73.9 Peripheral vascular disease, unspecified (principal)
CPT/HCPCS: 93923

== ENCOUNTER 2021-07-30 11:52 | Emergency (ER) | payer OTHER, MEDICAID, SELFPAY ==
[2021-07-30 11:55] VITALS: BP 134/94; PULSE 64; RESP 19; TEMP 36.5; O2SAT 99; BMI 42.5
--- NOTE | 2021-07-30 12:20 | RAD_ITS ---
STUDY: X-RAY - LEFT KNEE REASON FOR EXAM: Male, 76 years old. injury TECHNIQUE: 4 view(s) of the knee. COMPARISON: None. FINDINGS: Normal visualized distal femur. Normal visualized proximal tibia and fibula. Normal proximal tibiofibular articulation. Normal medial femorotibial compartment. Normal lateral femorotibial compartment. Normal patellofemoral articulation. Moderate prepatellar soft tissue swelling. RAD/Knee 4 or More Views IMPRESSION: No acute fracture or dislocation. Moderate prepatellar soft tissue swelling. Electronically Signed: Victor Hugo Akbar MD at 12:41 EDT ,
--- NOTE | 2021-07-30 12:28 | EDS_ITS ---
HPI History of Present Illness Chief Complaint: Lower Extremity Injury Informant: patient Narrative Narrative: 76-year-old male presents to the emergency department for left knee pain. Patient fell 1 week ago onto the left knee. He notes swelling bruising. He is on Xarelto has not missed any doses. He notes a burning pain underneath the skin rating down to the foot. He has been able to bear weight but with crutches. He denies any other injuries. 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 Longstanding persistent atrial fibrillation Morbid obesity with BMI of 40.0-44.9, adult Presence of permanent cardiac pacemaker (~07/16/17) Snoring Home Medications citalopram 40 mg tablet 40 mg PO DAILY depression 02/15/19 [History Last Taken Unknown] tamsulosin 0.4 mg capsule 1 tab PO DAILY prostate 02/15/19 [History Last Taken 02/15/19] diphenhydramine HCl 25 mg tablet (Benadryl Allergy) 25 mg PO QHS PRN 03/08/19 [History Last Taken Unknown] aspirin 81 mg tablet,delayed release (Adult Low Dose Aspirin) 81 mg PO DAILY 11/01/19 [History Last Taken Unknown] atorvastatin 20 mg tablet 20 mg PO QHS #30 tabs 11/01/19 [Rx Last Taken Unknown] diltiazem HCl 120 mg capsule,extended release 24 hr 120 mg PO DAILY #90 caps 11/01/19 [Rx Last Taken Unknown] insulin glargine 100 unit/mL (3 mL) subcutaneous pen 32 unit subcut QHS diabetes 11/01/19 [History Last Taken Unknown] lisinopril 2.5 mg tablet 2.5 mg PO DAILY #30 tabs 11/01/19 [Rx Last Taken Unknown] sotalol 80 mg tablet 80 mg PO BID heart rate #180 tabs 11/01/19 [Rx Last Taken Unknown] rivaroxaban 20 mg tablet (Xarelto) 20 mg PO QPM #90 tabs 04/19/20 [Rx Last Taken Unknown] albuterol sulfate 90 mcg/actuation aerosol inhaler (Ventolin HFA) 2 puff inhalation Q4H PRN PRN Wheezing ##1 07/31/20 [Rx Last Taken Unknown] furosemide 40 mg tablet See Rx Instructions PO DAILY 10/23/20 [History Last Taken Unknown] docusate sodium 50 mg capsule 50 mg PO DAILY 06/14/21 [History Last Taken Unknown] lactulose 20 gram/30 mL oral solution 20 g (30 mL) PO DAILY constipation #1,200 mL 06/14/21 [Rx Last Taken Unknown] hydrocodone-acetaminophen 5-325mg 5mg-325mg 1 tab PO Q6H PRN PRN Pain 3 days #12 TABLETS 07/30/21 [Rx Last Taken Unknown] Allergy/AdvReac Type Severity Reaction Status Date / Time codeine AdvReac Intermediate Unknown Verified 07/30/21 11:54 guaifenesin [From Robitussin] AdvReac Nausea Verified 07/30/21 11:54 Family History Father Diabetes Brother Rectal cancer Mother Stomach cancer Surgical History History of cardiac radiofrequency ablation (RFA) (09/15/19) History of cholecystectomy Social History Smoking Status: Former smoker alcohol intake: current alcohol intake frequency: holidays/special occasions only substance use type: does not use caffeine: No ROS ROS ED Constitutional Constitutional ED: Denies chills or weight loss Eyes Eyes: Denies change in vision or diplopia ENT ENT ED: Denies ear pain, rhinorrhea or sore throat Cardiovascular Cardiovascular: Denies chest pain, orthopnea, palpitations or racing heartbeat Respiratory/Chest Respiratory/Chest: Denies cough, dyspnea or orthopnea Gastrointestinal Gastrointestinal: Denies abdominal pain, diarrhea, nausea or vomiting Genitourinary Genitourinary ED: Denies dysuria, hematuria or urinary frequency Musculoskeletal Musculoskeletal: Reports other Details: Left knee pain ; Denies arthralgias or myalgias Integumentary Denies abscess or rash Neurologic Neurologic: Denies headache(s) or weakness Psychiatric Psychiatric: Denies anxiety, depression, suicidal ideation or suicidal thoughts Endocrine Endocrinology: Denies polydipsia, polyphagia or polyuria Allergic/Immunologic Allergic/Immunologic ED: Denies mouth swelling, tongue swelling or urticaria EXAM Physical Exam Const Vital Signs: 07/30/21 11:55 Temperature 97.7 F L Temperature Source Temporal Pulse Rate 64 Respiratory Rate 19 H Blood Pressure 134/94 H Blood Pressure Mean 107 Pulse Ox 99 Oxygen Delivery Method Room Air Positive well nourished, well developed and obese General Appearance ED: well developed Nutritional Appearance: obese HEENT Reports normocephalic, head/scalp atraumatic and moist mucous membranes Eyes PERRL and EOMs intact bilaterally Neck no lymphadenopathy, supple and no JVD Resp normal respiratory effort and clear to auscultation bilaterally Cardio regular rate, regular rhythm and no murmurs GI normal to inspection, nondistended, normoactive bowel sounds and non-tender Palpation: soft Back/Spine no CVA tenderness and normal ROM Extremity Extremity Narrative: The left knee demonstrates swelling and purple to greenish ecchymosis. There is no palpable effusion. He has tenderness laterally. The left leg is slightly more swollen than the right. Calf is nontender with no palpable cords. Ligaments appear stable though the patient has guarding. Extensor mechanism intact Neuro oriented x3 and CN's II-XII intact bilaterally Sensorium / Orientation: alert Motor Exam: strength 5/5 throughout Psych mental status grossly normal Mood & Affect: Negative for depressed or tearful Skin no rashes or lesions noted and no wounds MDM MDM MDM Narrative Medical decision making narrative: My interpretation of the plain films of the left knee is no acute fracture or dislocation. Noted soft tissue swelling. I do not think the patient has a DVT as he has not missed any doses of his Xarelto. I think the patient sustained a large hematoma to the anterior aspect of the knee. Over time now this fluid has been pulled inferiorly by gravity resulted in the leg swelling. His calf is nontender there is no palpable cords he is already on anticoagulants. His ligaments appear stable. Bone castaneda he looks well. We will have him Kenny wrap continue use of crutches follow-up with primary care in 1 week Radiography Diagnostic Testing: Clinical Impression(s) from Imaging Studies Knee X-Ray 07/30/21 12:20 IMPRESSION: No acute fracture or dislocation. Moderate prepatellar soft tissue swelling. Electronically Signed: Victor Hugo Akbar MD at 12:41 EDT , Discharge Plan Triage Chief Complaint: Lower Extremity Injury ED Provider: Jairo Kaba Dx/Rx/DC Orders Clinical Impression: Traumatic hematoma of left knee Instructions: ED Hematoma Prescriptions: New hydrocodone-acetaminophen [hydrocodone-acetaminophen] 5-325 mg tablet 1 tab PO Q6H PRN PRN (Reason: Pain) 3 Days Qty: 12 0RF No Action diphenhydramine HCl [Benadryl Allergy] 25 mg tablet 25 mg PO QHS PRN aspirin [Adult Low Dose Aspirin] 81 mg tablet,delayed release (DR/EC) 81 mg PO DAILY atorvastatin 20 mg tablet 20 mg PO QHS Qty: 30 11RF diltiazem HCl 120 mg capsule,extended release 24hr 120 mg PO DAILY Qty: 90 3RF lisinopril 2.5 mg tablet 2.5 mg PO DAILY Qty: 30 11RF sotalol 80 mg tablet 80 mg PO BID Qty: 180 3RF docusate sodium 50 mg capsule 50 mg PO DAILY lactulose 20 gram/30 mL solution 20 g PO DAILY Qty: 1200 0RF tamsulosin 0.4 MG capsule 1 tab PO DAILY Label Comments: TAKE 1 CAPSULE BY MOUTH EVERY DAY citalopram 40 MG tablet 40 mg PO DAILY insulin glargine 100 unit/mL (3 mL) insulin pen 32 unit SC QHS albuterol sulfate [Ventolin HFA] 1 INHALER inhaler 2 puff inhalation Q4H PRN PRN (Reason: Wheezing) Qty: 1 0RF Xarelto 20 mg tablet 20 mg PO QPM Qty: 90 3RF furosemide 40 mg tablet See Rx Instructions PO DAILY Rx Instructions: Take 80 mg daily on Thursday, Thursday, Thursday. Take 40 mg daily all other days. Primary Care Provider: Abby Aguilar [facility]errals[facility] [NON-STAFF] - Disposition Disposition: Home, Self Care
[2021-07-30 13:37] VITALS: BP 146/71; PULSE 88; RESP 15; O2SAT 98
== END 2021-07-30 13:40 | disposition home or self-care (01) ==
PROVIDERS: Emergency Provider Emergency Medicine; PCP Family Medicine; Visit Provider Emergency Medicine
DX: S80.02XA Contusion of left knee, initial encounter (principal); I48.11 Longstanding persistent atrial fibrillation; E66.01 Morbid (severe) obesity due to excess calories; Z68.41 Body mass index [BMI] 40.0-44.9, adult; E11.9 Type 2 diabetes mellitus without complications; Z79.4 Long term (current) use of insulin; W19.XXXA Unspecified fall, initial encounter; I10 Essential (primary) hypertension; K59.00 Constipation, unspecified; Z95.0 Presence of cardiac pacemaker; Z79.01 Long term (current) use of anticoagulants; Z79.82 Long term (current) use of aspirin; Z79.899 Other long term (current) drug therapy; Z87.891 Personal history of nicotine dependence
CPT/HCPCS: 73564; 99282

== ENCOUNTER 2021-09-16 07:12 | Day surgery (SDC) | payer MEDICARE, MEDICAID, SELFPAY ==
[2021-09-16] MEDS: Lactated Ringers 1,000 ML 15 ML IV (07:25)
--- NOTE | 2021-09-16 07:46 | HP.PCM_ITS ---
History and Physical Date of Admission: 09/16/21 ANTONIA PICHARDO, is a 76 M who presents to the office today for alternating diarrhea and constipation He reports a tendency to get diarrhea all his life. Constipation started more recently, maybe 10 yrs ago. He finds the diarrhea more bothersome, becuase it can be so urgent that he can't make it to the bathroom in time. Not related to eating. No nocturnal diarrhea. The diarrhea occurs about once a week, usually the day after being very constipated. For example, yesterday he had a very di fficult time moving his bowels, and now he feels intestinal rumbling and predicts he will have diarrhea. Can also have diarrhea with greasy foods. No melena or hematochezia. Used to take paragoric--before taken off the market--it worked very well at stopping diarrhea. Imodium not effective. Has a prescription med for diarrhea but not sure what it is. He denies any abdominal pain. Gets some discomfort from gas. Painful straining w/ rock hard stool when constipated. Has used mag citrate. Tried a suppository yesterday but it popped out. Takes stool softener and fiber. Rare senna laxative. No prior colonoscopy. Hx hemorrhoid banding. His abdominal hernia hurts when constipated. Hospitalized few yrs ago at [facility] for norovirus infection, sepsis. Hx cholecystectomy, no significant issues with heartburn since then. Just rare heartburn if spicy food and diet Pepsi together. No nausea, vomiting, dysphagia. Comorbidities include DM2, HTN, morbid obesity, pacemaker, atrial fibrillation, [employer] for [employer] Const Constitutional: Positive for sleep problems; No fatigue ENT ENT: No difficulty swallowing Gastro GI: Positive for belching, bloating, constipation, cramping, diarrhea and loose stools; No abdominal pain, change in bowel habits, change in stool character, coffee ground emesis, heartburn, difficulty swallowing, feeling full early, excessive flatus, incontinent of stools, Vomiting blood/hematemesis, Blood in stool, Black,tarry stools, nausea/dyspepsia, pain with swallowing, vomiting or other Musc Musculoskeletal: No joint pain Skin Skin: No yellowing of the eye or itchy eyes Psych Psychiatric: No anxiety and No depression Endo Endocrine: No fatigue Aller/Imm Allergy/Immunologic: No itchy eyes Ottoniel/Lymp Hematologic/Lymphatic: No easy bleeding or easy bruising Exam Const General: cooperative, comfortable and no acute distress Nutritional Appearance: obese Eyes Conjunctivae: conjunctivae normal Sclera: sclerae normal Resp Effort & Inspection: normal respiratory effort GI Inspection: obesity and visible herniation (right of midline, superior to umbilicus) Palpation: soft and nontender Neuro Gait: gait assisted (cane) Psych Mood: euthymic mood Affect: normal affect Quality Reporting Tobacco Screening ([facility] 138) Smoking Status: Former smoker Assessment and Plan Assessment and Plan (1) Alternating constipation and diarrhea: ?Status:?Acute ? ? ? Orders:?Orders: ? 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 yr old male with constipation alternating with diarrhea. Possible overflow diarrhea. Case discussed with Dr Friend. LEWIS today, may need CT later. Schedule for colonoscopy as well as EGD. Will have him try lactulose for constipation. f/u 6 wks as well as 2 wks after endoscopies.? Plan Details Other Medications: ?New: ? lactulose 20 grams (30 mL) PO DAILY 1,200 mL 0RF c onstipation I have re-examined the patient. There are no clinical changes since date of exam.
[2021-09-16 07:48] VITALS: BP 133/71; PULSE 51; RESP 16; TEMP 36.6; O2SAT 100; BMI 41.8
[2021-09-16 08:15] LABS: Bedside Glucose 143 mg/dL (74-106)
--- NOTE | 2021-09-16 08:30 | EGD_PTH ---
PATIENT: ANTONIA PICHARDO LOC: EN U#:[id number] AGE/SX: 76/M ROOM: RE09/16/[address]: Dr. Edwardo Saleh DO : 1945 BED: DIS: 09/16/2021 SPEC #: [id number] RECD: 09/16/21 11:31 STATUS: LEAH SHILPA #: [id number] MAYRA: 09/16/21 08:[address]: Edwardo Saleh DEPT: SURGICAL PATHOLOGY RECD BY: Ledy Song ENTERED: 09/16/21 13:07 SP TYPE: EGD BIOPSY OT DR: Jolie Resendiz, MARTÍN-C Tissues: A - Gastric mucous membrane B - Gastric mucous membrane C - Esophagus, NOS D - Ascending colon E - COLON BIOPSY F - Sigmoid colon biopsy G - Sigmoid colon biopsy Procedures: Special Stain Group II Surgery Specimen Level IV Alcian Blue/PAS (control) HEADER OPERATION: Colonoscopy, EGD ([facility] [place]), biopsy PRE-OP DIAGNOSIS: Alternating constipation and diarrhea TISSUE SUBMITTED: A ? Gastric antrum biopsy for histo and H. pylori, B ? Gastric ulcer biopsy, C ? Distal esophagus biopsy, D ? Ascending polyp, E ? Splenic flexure polyp, F ? Sigmoid biopsy. G ? Sigmoid polyp MICROSCOPIC DIAGNOSIS A. Gastric antrum, biopsy: Mild gastritis. See microscopic description and comment. B. Gastric ulcer, biopsy: Mild gastritis. See microscopic description. C. 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 Chronic inflammation. Negative for dysplasia. See comment. D. Ascending colon polyp, biopsy: Fragments of tubulovillous adenoma. E. Splenic flexure polyp, biopsy: Fragments of tubular adenoma. F. Sigmoid colon, biopsy: Fragments of colonic mucosa, no pathologic diagnosis. G. Sigmoid polyp, biopsy: Fragments of tubular adenoma. SJ:shelbi 09/17/2021 COMMENT A. The results of immunohistochemistry for Helicobacter pylori will be reported separately ([id number]). C. Immunohistochemistry ([id number]) for P53 and Ki-67 will be performed and results will be reported separately. Alcian blue/PAS stain with matched control is used in the evaluation of the specimen. Case has been reviewed in consultation with Dr. Klein who concurs with the above diagnosis. IDC:AM MICROSCOPIC DESCRIPTION Slides are reviewed. A. The specimen shows fragments of gastric mucosa with chronic inflammatory cell infiltrates in the lamina propria consisting of lymphocytes and plasma cells, consistent with mild chronic gastritis. B. The specimen shows fragments of gastric mucosa with chronic inflammatory cell infiltrates in the lamina propria consisting of lymphocytes and plasma cells, consistent with mild chronic gastritis. Focal mucosal congestion and hemorrhage are also noted. GROSS DESCRIPTION A - Received in fixative is one container labeled with the patient's name and designated gastric antrum biopsy. The specimen consists of two irregular fragments of light marques soft tissue that in aggregate measure 0.6 x 0.3 x 0.1 cm. The specimen is totally submitted in one cassette. B - Received in fixative is one container labeled with the patient's name and designated gastric ulcer biopsy. The specimen consists of two irregular fragments of light marques soft tissue that in aggregate measure 0.8 x 0.3 x 0.1 cm. The specimen is totally submitted in one cassette. C - Received in fixative is one container labeled with the patient's name and designated distal esophagus biopsy. The specimen consists of multiple irregular fragments of light marques soft tissue that in aggregate measure 1 x 0.3 x 0.1 cm. The specimen is totally submitted in one cassette. D - Received in fixative is one container labeled with the patient's name and designated ascending polyp. The specimen consists of multiple irregular fragments of light marques soft tissue that in aggregate measure 2.5 x 2 x 0.3 cm. Multiple fragments of fecal material are also noted. The specimen is totally submitted in one cassette. E - Received in fixative is one container labeled with the patient's name and designated splenic flexure polyp. The specimen consists of multiple irregular fragments of light marques soft tissue that in aggregate measure 1.5 x 0.5 x 0.2 cm. The specimen is totally submitted in one cassette. F - Received in fixative is one container labeled with the patient's name and designated sigmoid biopsy. The specimen consists of two irregular fragments of light marques soft tissue that in aggregate measure 0.6 x 0.3 x 0.1 cm. The specimen is totally submitted in one cassette. G - Received in fixative is one container labeled with the patient's name and designated sigmoid polyp. The specimen consists of multiple fragments of marques-pink polyp that in aggregate measure 1.5 x 1 x 0.5 cm. The largest polyp is bisected. The specimen is totally submitted in one cassette. / SJ:rg 09/16/2021 TC:1 CPT: 57184 x7, 35179
--- NOTE | 2021-09-16 08:30 | IMM_PTH ---
PATIENT: ANTONIA PICHARDO LOC: EN U#:[id number] AGE/SX: 76/M ROOM: RE09/16/[address]: Dr. Edwardo Saleh DO : 1945 BED: DIS: 09/16/2021 SPEC #: [id number] RECD: 09/16/21 13:46 STATUS: LEAH REMarlena #: [id number] MAYRA: 09/16/21 08:[address]: Edwardo Saleh DEPT: IMMUNOHISTOCHEMISTRY RECD BY: Ani Batres ENTERED: 09/16/21 13:46 SP TYPE: IMMUNO OTHR DR: Jolie Resendiz, HYDROGRAPHY TEACHER-C Tissues: A - Stomach, NOS C - Esophageal mucous membrane Procedures: H Pylori (initial) P53 (initial) KI-67 (add) PHYSICIAN & INSTITUTION [place] [id number] SPECIMEN INFORMATION: Tissue Source: A ? Gastric antrum biopsy, C ? Distal esophagus biopsy Clinical Info: Alternating constipation and diarrhea Specimen Number: [id number] A & C CPT code: 28789 x2, 58870 METHODOLOGY: Deparaffinized sections of prefer/formalin-fixed tissue or PAP/DQ stained slides are incubated with monoclonal/polyclonal antibodies/oligonucleotide probes. Localization is made via biotin free immunoperoxidase method. Appropriate controls are performed and reacted as expected. Results on target cell population are indicated in the following table: RESULTS: ANTIBODY / CLONE RESULT Block A H Pylori (polyclonal) negative Block C P53 (DO-7) positive, rare cells, weak Ki-67 (30-9) positive, low These tests were developed and their performance characteristics determined by [facility]. They may not have been cleared or approved by the U.S. Food and Drug Administration. The FDA has determined that such clearance or approval is not necessary. The above immunohistochemical/dualISH markers are ordered and reviewed by the Pathologist. INTERPRETATION: A. Gastric antrum, biopsy: Negative for Helicobacter pylori organisms. C. Distal esophagus, biopsy: Negative for dysplasia. This case has been reviewed in consultation with Dr. Klein who concurs with the above diagnosis. SJ:shelbi 09/18/2021
[2021-09-16 09:18] VITALS: BP 113/62; BP 133/71; PULSE 66; RESP 16; TEMP 36.8; O2SAT 95
--- NOTE | 2021-09-16 09:18 | OP.EGD_ITS ---
Patient Name: Lauri Stern Procedure Date: 09/16/2021 8:18 AM Date of : 1945 Age: 76 Procedure: Upper GI endoscopy Indications: Epigastric abdominal pain, Heartburn, Failure to respond to medical treatment Providers: Edwardo Saleh DO Medicines: Monitored Anesthesia Care Patient Profile: This is a 76 year old male. Refer to note in patient chart for documentation of history and physical. Patient has symptoms of chronic abdominal cramping, chronic abdominal distention, chronic epigastric abdominal pain and chronic heartburn. The symptoms first began June. Complications: No immediate complications. Procedure: Pre-Anesthesia Assessment: - Prior to the procedure, a History and Physical was performed, and patient medications and allergies were reviewed. The risks and benefits of the procedure and the sedation options and risks were discussed with the patient. All questions were answered and informed consent was obtained. Patient identification and proposed procedure were verified by the physician in the pre-procedure area. Mental Status Examination: alert and oriented. Airway Examination: normal oropharyngeal airway and neck mobility. Respiratory Examination: clear to auscultation. CV Examination: normal. Prophylactic Antibiotics: The patient does not require prophylactic antibiotics. Prior Anticoagulants: The patient has taken no previous anticoagulant or antiplatelet agents. After reviewing the risks and benefits, the patient was deemed in satisfactory condition to undergo the procedure. The anesthesia plan was to use moderate sedation / analgesia (conscious sedation). Immediately prior to administration of medications, the patient was re-assessed for adequacy to receive sedatives. The heart rate, respiratory rate, oxygen saturations, blood pressure, adequacy of pulmonary ventilation, and response to care were monitored throughout the procedure. The physical status of the patient was re-assessed after the procedure. After obtaining informed consent, the endoscope was passed under direct vision. Throughout the procedure, the patient's blood pressure, pulse, and oxygen saturations were monitored continuously. The pediatric colonoscope was introduced through the mouth, and advanced to the second part of duodenum. The upper GI endoscopy was accomplished without difficulty. The patient tolerated the procedure well. Scope In: 8:30:33 AM Scope Out: 8:37:54 AM Total Procedure Duration Time 0 hours 7 minutes 21 seconds Findings: The Z-line was irregular and was found 40 cm from the incisors. Biopsies were taken with a cold forceps for histology. Verification of patient identification for the specimen was done. Estimated blood loss was minimal. A medium-sized hiatal hernia was present. One non-bleeding linear gastric ulcer with no stigmata of bleeding was found on the greater curvature of the stomach. The lesion was 6 mm in largest dimension. Biopsies were taken with a cold forceps for histology. Verification of patient identification for the specimen was done. Estimated blood loss was minimal. Patchy mildly erythematous mucosa without bleeding was found in the gastric antrum. Biopsies were taken with a cold forceps for histology. Verification of patient identification for the specimen was done. Estimated blood loss was minimal. The duodenal bulb was normal. Biopsies were taken with a cold forceps for histology. Verification of patient identification for the specimen was done. Estimated blood loss was minimal. The first portion of the duodenum appeared to be very tortuous. Impression: - Z-line irregular, 40 cm from the incisors. Biopsied. - Medium-sized hiatal hernia. - Non-bleeding gastric ulcer with no stigmata of bleeding. Biopsied. - Erythematous mucosa in the antrum. Biopsied. - Normal duodenal bulb. Biopsied. Recommendation: - Discharge patient to home. - Resume previous diet. - Continue present medications. - Await pathology results. - Consider upper GI with small bowel follow-through to evaluate the duodenum Procedure Code(s): --- Professional --- 89502, Esophagogastroduodenoscopy, flexible, transoral; with biopsy, single or multiple CPT copyright 2017 [employer]. All rights reserved. The codes documented in this report are preliminary and upon synthetic soil blocks pulper review may be revised to meet current compliance requirements. Edwardo Saleh DO 09/16/2021 9:17:56 AM This report has been signed electronically. Number of Addenda: 1 Note Initiated On: 09/16/2021 8:18 AM Addendum Number: 1 Addendum Date: 11/14/2021 6:25:11 AM MAC was used as sedation for this procedure. Edwardo Saleh DO 11/14/2021 6:25:15 AM This report has been signed electronically.
--- NOTE | 2021-09-16 09:18 | OP.CCLET_ITS ---
11/14/2021 Abby Aguilar Md Re : Upper GI endoscopy procedure for Lauri Stern Dear Jeff This procedure was performed on Thursday, September 16, 2021. My impressions and recommendations are as follows: Impressions : - Z-line irregular, 40 cm from the incisors. Biopsied. - Medium-sized hiatal hernia. - Non-bleeding gastric ulcer with no stigmata of bleeding. Biopsied. - Erythematous mucosa in the antrum. Biopsied. - Normal duodenal bulb. Biopsied. Recommendations : - Discharge patient to home. - Resume previous diet. - Continue present medications. - Await pathology results. - Consider upper GI with small bowel follow-through to evaluate the duodenum My findings are described in the full procedure note, which is enclosed. If I can be of further assistance, please feel free to contact me at . Sincerely, Edwardo Saleh, 09/16/2021 9:17:56 AM This report has been signed electronically.
--- NOTE | 2021-09-16 09:22 | OP.CCLET_ITS ---
11/14/2021 Abby Aguilar Md Re : Colonoscopy procedure for Lauri Stern Dear Jeff This procedure was performed on Thursday, September 16, 2021. My impressions and recommendations are as follows: Impressions : - Diverticulosis in the recto-sigmoid colon and in the sigmoid colon. - Three 1 to 2 mm polyps in the sigmoid colon, at the splenic flexure and in the ascending colon, removed with a hot snare. Resected and retrieved. - Congested mucosa in the recto-sigmoid colon and in the sigmoid colon. Biopsied. Recommendations : - Discharge patient to home. - Resume previous diet. - Continue present medications. - Await pathology results. - Repeat colonoscopy in 2 years for surveillance of multiple polyps. My findings are described in the full procedure note, which is enclosed. If I can be of further assistance, please feel free to contact me at . Sincerely, Edwardo Friend, 09/16/2021 9:21:50 AM This report has been signed electronically.
--- NOTE | 2021-09-16 09:22 | OP.COLON_ITS ---
Patient Name: Lauri Stern Procedure Date: 09/16/2021 8:39 AM Date of : 1945 Age: 76 Procedure: Colonoscopy Indications: Abdominal pain in the left lower quadrant, Abdominal pain in the left upper quadrant, Clinically significant diarrhea of unexplained origin Providers: Edwardo Saleh DO Medicines: Monitored Anesthesia Care Patient Profile: This is a 76 year old male. Refer to note in patient chart for documentation of history and physical. Patient has symptoms of chronic abdominal cramping, chronic abdominal distention, chronic epigastric abdominal pain and chronic heartburn. The symptoms first began June. He is status post colonoscopy for polyp removal within the past several years. Last Colonoscopy: several years ago. Complications: No immediate complications. Procedure: Pre-Anesthesia Assessment: - Prior to the procedure, a History and Physical was performed, and patient medications and allergies were reviewed. The risks and benefits of the procedure and the sedation options and risks were discussed with the patient. All questions were answered and informed consent was obtained. Patient identification and proposed procedure were verified by the physician in the pre-procedure area. Mental Status Examination: alert and oriented. Airway Examination: normal oropharyngeal airway and neck mobility. Respiratory Examination: clear to auscultation. CV Examination: normal. Prophylactic Antibiotics: The patient does not require prophylactic antibiotics. Prior Anticoagulants: The patient has taken no previous anticoagulant or antiplatelet agents. After reviewing the risks and benefits, the patient was deemed in satisfactory condition to undergo the procedure. The anesthesia plan was to use moderate sedation / analgesia (conscious sedation). Immediately prior to administration of medications, the patient was re-assessed for adequacy to receive sedatives. The heart rate, respiratory rate, oxygen saturations, blood pressure, adequacy of pulmonary ventilation, and response to care were monitored throughout the procedure. The physical status of the patient was re-assessed after the procedure. After I obtained informed consent, the scope was passed under direct vision. Throughout the procedure, the patient's blood pressure, pulse, and oxygen saturations were monitored continuously. The pediatric colonoscope was introduced through the anus and advanced to the terminal ileum. The colonoscopy was performed without difficulty. The patient tolerated the procedure well. The quality of the bowel preparation was good. Scope In: 8:41:01 AM Scope Withdrawal Time 0 hours 21 minutes 17 seconds Scope Out: 9:08:26 AM Total Procedure Duration Time 0 hours 27 minutes 25 seconds Findings: The perianal and digital rectal examinations were normal. A few small-mouthed diverticula were found in the recto-sigmoid colon and sigmoid colon. Three sessile polyps were found in the sigmoid colon, splenic flexure and ascending colon. The polyps were 1 to 2 mm in size. These polyps were removed with a hot snare. Resection and retrieval were complete. Verification of patient identification for the specimen was done. Estimated blood loss was minimal. An area of mildly congested mucosa was found in the recto-sigmoid colon and in the sigmoid colon. Biopsies were taken with a cold forceps for histology. Verification of patient identification for the specimen was done. Estimated blood loss was minimal. Impression: - Diverticulosis in the recto-sigmoid colon and in the sigmoid colon. - Three 1 to 2 mm polyps in the sigmoid colon, at the splenic flexure and in the ascending colon, removed with a hot snare. Resected and retrieved. - Congested mucosa in the recto-sigmoid colon and in the sigmoid colon. Biopsied. Recommendation: - Discharge patient to home. - Resume previous diet. - Continue present medications. - Await pathology results. - Repeat colonoscopy in 2 years for surveillance of multiple polyps. Procedure Code(s): --- Professional --- 50259, Colonoscopy, flexible; with removal of tumor(s), polyp(s), or other lesion(s) by snare technique 65711, 59, Colonoscopy, flexible; with biopsy, single or multiple CPT copyright 2017 [employer] [place] [employer]. All rights reserved. The codes documented in this report are preliminary and upon plant guide review may be revised to meet current compliance requirements. Edwardo Saleh DO 09/16/2021 9:21:50 AM This report has been signed electronically. Number of Addenda: 1 Note Initiated On: 09/16/2021 8:39 AM Addendum Number: 1 Addendum Date: 11/14/2021 6:25:22 AM MAC was used as sedation for this procedure. Edwardo Saleh DO 11/14/2021 6:25:27 AM This report has been signed electronically.
[2021-09-16 09:25] VITALS: BP 113/67; BP 133/71; PULSE 62; RESP 16; O2SAT 96
[2021-09-16 09:30] VITALS: BP 122/65; BP 133/71; PULSE 63; RESP 16; O2SAT 96
[2021-09-16 09:35] VITALS: BP 116/65; BP 133/71; PULSE 63; RESP 16; TEMP 36.5; O2SAT 97
[2021-09-16 09:51] VITALS: BP 133/71
== END 2021-09-16 10:15 | disposition home or self-care (01) ==
LOC: EN 07:13 → AC 07:15
PROVIDERS: PCP Nurse Practitioner Adult Health; Referring Provider Nurse Practitioner Adult Health; Visit Provider Internal Medicine Gastroenterology
PROC: 0DJD8ZZ Inspection of Lower Intestinal Tract, Via Natural or Artificial Opening Endoscopic (ICD-10-PCS; CPT 45378; principal; 2021-09-16 08:25)
DX: D12.2 Benign neoplasm of ascending colon (principal); I48.11 Longstanding persistent atrial fibrillation; E66.01 Morbid (severe) obesity due to excess calories; Z68.41 Body mass index [BMI] 40.0-44.9, adult; Z79.4 Long term (current) use of insulin; E11.9 Type 2 diabetes mellitus without complications; D12.3 Benign neoplasm of transverse colon; D12.5 Benign neoplasm of sigmoid colon; K22.70 Barrett's esophagus without dysplasia; K44.9 Diaphragmatic hernia without obstruction or gangrene; K29.70 Gastritis, unspecified, without bleeding; K57.30 Diverticulosis of large intestine without perforation or abscess without bleeding; K25.9 Gastric ulcer, unspecified as acute or chronic, without hemorrhage or perforation; I10 Essential (primary) hypertension; E78.00 Pure hypercholesterolemia, unspecified; N42.9 Disorder of prostate, unspecified; G47.33 Obstructive sleep apnea (adult) (pediatric); F32.A Depression, unspecified; F41.9 Anxiety disorder, unspecified; K59.00 Constipation, unspecified; R10.12 Left upper quadrant pain; R10.32 Left lower quadrant pain; R10.13 Epigastric pain; R19.7 Diarrhea, unspecified; Z95.0 Presence of cardiac pacemaker; Z90.49 Acquired absence of other specified parts of digestive tract; Z79.01 Long term (current) use of anticoagulants; Z79.899 Other long term (current) drug therapy; Z87.891 Personal history of nicotine dependence
CPT/HCPCS: 45385; 45380; 43239; 82962; 88305; 88313; 88341; 88342; J7120; J2405

== ENCOUNTER → 2022-02-27 | Outpatient (CLI) | payer MEDICARE, MEDICAID, SELFPAY ==
[2022-02-27 12:17] LABS: Absolute Lymphocyte Count 1.76 X10^3/uL (0.83-4.51); Absolute Neutrophil Count 4.5 X10^3/uL (2.0-7.7); Basophil# 0.03 X10^3/uL; Basophil% 0.4 % (0-1); Eosinophil# 0.09 X10^3/uL; Eosinophils% 1.3 % (0-5); Hematocrit 46.2 % (40-54); Hemoglobin 14.6 g/dL (13.0-16.5); Lymphocyte # 1.76 X10^3/ul (0.83-4.51); Lymphocyte % 25.5 % (19-41); Mean Corp Hgb Conc 31.6 g/dL (32-36); Mean Corpuscular Hgb 26.6 pg (27.0-32.0); Mean Corpuscular Volume 84.2 fL (80-94); Mean Platelet Vol. 11.6 fl (6.2-12.0); Monocyte# 0.46 X10^3/uL; Monocyte% 6.7 % (0-10); NRBC Flagged by Analyzer 0 % (0-5); Neutrophil # 4.53 X10^3/uL (2.7-7.7); Neutrophil % 65.8 % (47-70); Platelet Count 190 K/mm3 (150-450); RBC Distribution Width CV 15.6 % (11.6-14.6); RBC Distribution Width SD 47.8 fl (35.1-43.9); Red Blood Count 5.49 M/mm3 (4.6-6.2); White Blood Count 6.9 K/mm3 (4.4-11.0)
[2022-02-27 12:44] LABS: AST(SGOT) 23 U/L (15-37); Alanine Aminotransfer ALT/SGPT 36 U/L (16-61); Albumin, Serum 3.9 g/dL (3.2-5.0); Alkaline Phosphatase 84 U/L (45-117); Anion Gap 5 (5-15); BUN 17 mg/dL (7-18); BUN/Creat Ratio 15.3 RATIO (10-20); Calcium,Total 9.6 mg/dL (8.5-10.1); Chloride 104 mmol/L (98-107); Creatinine, Serum 1.11 mg/dL (0.70-1.30); EST Glomerular Filtration Rate 69 mL/min (>60); Est Glom Filt Rate - Afr Amer 83 mL/min (>60); Globulin 4.1 g/dL (2.2-4.2); Glucose 102 mg/dL (74-106); Potassium 3.9 mmol/L (3.5-5.1); Sodium Level 138 mmol/L (136-145)
== END | disposition home or self-care (01) ==
LOC: BIMLAB 09:30
PROVIDERS: PCP Internal Medicine; Visit Provider Internal Medicine
DX: E11.65 Type 2 diabetes mellitus with hyperglycemia (principal)
CPT/HCPCS: 36415; 80053; 85025

== ENCOUNTER → 2022-05-22 | Outpatient (CLI) | payer MEDICARE, MEDICAID, SELFPAY ==
[2022-05-22 15:25] LABS: Cholesterol 97 mg/dL (200); High Density Lipoprotein 31 mg/dL; PSA,Total- Diagnostic 6.78 ng/mL (0.0-4.0); Triglycerides 98 mg/dL; Very Low Density Lipoprotein 20 mg/dL (5-40); Vitamin D,25 Hydroxy 12.3 ng/mL
== END | disposition home or self-care (01) ==
LOC: BIMLAB 11:51
PROVIDERS: PCP Internal Medicine; Referring Provider Internal Medicine; Visit Provider Internal Medicine
DX: E11.9 Type 2 diabetes mellitus without complications (principal); Z79.4 Long term (current) use of insulin; N40.0 Benign prostatic hyperplasia without lower urinary tract symptoms; E55.9 Vitamin D deficiency, unspecified
CPT/HCPCS: 36415; 80061; 82306; 84153

== ENCOUNTER → 2022-05-28 | Outpatient (CLI) | payer MEDICARE, MEDICAID, SELFPAY ==
[2022-05-28 13:50] LABS: Microalbumin,Random Urine 16.1 mg/L (NO RANGE EST.); Microalbumin:Creatinine Ratio 9.7 mg/g CRE (<30 mg/g CRE)
== END | disposition home or self-care (01) ==
LOC: LABSPEC 11:42
PROVIDERS: PCP Internal Medicine; Referring Provider Internal Medicine; Visit Provider Internal Medicine
DX: E11.65 Type 2 diabetes mellitus with hyperglycemia (principal)
CPT/HCPCS: 82043; 82570

== ENCOUNTER → 2022-06-10 | Outpatient (CLI) | payer MEDICARE, MEDICAID, SELFPAY ==
[2022-06-16 03:06] LABS: Calprotectin, Stool 64 ug/g (0-120)
[2022-06-16 22:06] LABS: Pancreatic Elastase, Fecal 231 (>200)
== END | disposition home or self-care (01) ==
LOC: LABSPEC 09:53
PROVIDERS: Nurse Practitioner Adult Health; PCP Internal Medicine; Visit Provider Internal Medicine Gastroenterology
DX: K58.0 Irritable bowel syndrome with diarrhea (principal)
CPT/HCPCS: 82653; 83630; 83993

== ENCOUNTER → 2022-08-21 | Outpatient (CLI) | payer MEDICARE, MEDICAID, SELFPAY ==
[2022-08-21 13:03] LABS: Vitamin D,25 Hydroxy 29.8 ng/mL
[2022-08-21 13:26] LABS: PSA,Total- Diagnostic 8.44 ng/mL (0.0-4.0)
== END | disposition home or self-care (01) ==
LOC: BIMLAB 11:21
PROVIDERS: PCP Internal Medicine; Referring Provider Internal Medicine; Visit Provider Internal Medicine
DX: E55.9 Vitamin D deficiency, unspecified (principal); N40.0 Benign prostatic hyperplasia without lower urinary tract symptoms
CPT/HCPCS: 36415; 82306; 84153

== ENCOUNTER → 2023-01-12 | Outpatient (CLI) | payer MEDICARE, MEDICAID, SELFPAY ==
[2023-01-12 16:45] LABS: PSA,Total- Diagnostic 6.64 ng/mL (0.0-4.0)
== END | disposition home or self-care (01) ==
LOC: BIMLAB 13:13
PROVIDERS: PCP Internal Medicine; Referring Provider Urology; Visit Provider Urology
DX: R97.20 Elevated prostate specific antigen [PSA] (principal)
CPT/HCPCS: 36415; 84153

== ENCOUNTER → 2023-02-26 | Outpatient (CLI) | payer MEDICARE, MEDICAID, SELFPAY ==
[2023-02-26 12:13] LABS: Absolute Lymphocyte Count 1.95 X10^3/uL (0.83-4.51); Absolute Neutrophil Count 4.1 X10^3/uL (2.0-7.7); Basophil# 0.03 X10^3/uL; Basophil% 0.5 % (0-1); Eosinophil# 0.06 X10^3/uL; Eosinophils% 0.9 % (0-5); Hemoglobin 13.7 g/dL (13.0-16.5); Lymphocyte # 1.95 X10^3/ul (0.83-4.51); Lymphocyte % 29.5 % (19-41); Mean Corp Hgb Conc 31.1 g/dL (32-36); Mean Corpuscular Hgb 26.4 pg (27.0-32.0); Mean Corpuscular Volume 84.8 fL (80-94); Mean Platelet Vol. 10.7 fl (6.2-12.0); Monocyte# 0.44 X10^3/uL; Monocyte% 6.7 % (0-10); NRBC Flagged by Analyzer 0 % (0-5); Neutrophil # 4.09 X10^3/uL (2.7-7.7); Neutrophil % 61.9 % (47-70); Platelet Count 197 K/mm3 (150-450); RBC Distribution Width SD 49.4 fl (35.1-43.9); Red Blood Count 5.19 M/mm3 (4.6-6.2); White Blood Count 6.6 K/mm3 (4.4-11.0)
[2023-02-26 12:49] LABS: ALB/GLOB Ratio 0.9 RATIO (0.9-2.4); AST(SGOT) 19 U/L (15-37); Alanine Aminotransfer ALT/SGPT 27 U/L (16-61); Albumin, Serum 3.6 g/dL (3.2-5.0); Alkaline Phosphatase 72 U/L (45-117); Anion Gap 3 (5-15); BUN 14 mg/dL (7-18); BUN/Creat Ratio 13.5 RATIO (10-20); Calcium,Total 9.7 mg/dL (8.5-10.1); Chloride 103 mmol/L (98-107); Cholesterol 164 mg/dL (200); Creatinine, Serum 1.04 mg/dL (0.70-1.30); EST Glomerular Filtration Rate 74 mL/min (>60); Est Glom Filt Rate - Afr Amer 89 mL/min (>60); Globulin 4.1 g/dL (2.2-4.2); Glucose 105 mg/dL (74-106); High Density Lipoprotein 32 mg/dL; Potassium 3.9 mmol/L (3.5-5.1); Protein, Total 7.7 g/dL (6.4-8.2); Sodium Level 135 mmol/L (136-145); Triglycerides 125 mg/dL; Very Low Density Lipoprotein 25 mg/dL (5-40)
[2023-02-26 14:26] LABS: Vitamin D,25 Hydroxy 18.9 ng/mL
== END | disposition home or self-care (01) ==
LOC: BIMLAB 11:21
PROVIDERS: PCP Internal Medicine; Referring Provider Internal Medicine; Visit Provider Internal Medicine
DX: E55.9 Vitamin D deficiency, unspecified (principal); E11.65 Type 2 diabetes mellitus with hyperglycemia
CPT/HCPCS: 36415; 80053; 80061; 82306; 85025

== ENCOUNTER → 2023-08-25 | Outpatient (CLI) | payer MEDICARE, MEDICAID, SELFPAY ==
[2023-08-25 15:36] LABS: PSA,Total- Diagnostic 5.02 ng/mL (0.0-4.0)
== END | disposition home or self-care (01) ==
LOC: BIMLAB 13:33
PROVIDERS: PCP Internal Medicine; Referring Provider Urology; Visit Provider Urology
DX: R97.20 Elevated prostate specific antigen [PSA] (principal)
CPT/HCPCS: 36415; 84153

== ENCOUNTER → 2023-09-01 | Outpatient (CLI) | payer MEDICARE, MEDICAID, SELFPAY ==
[2023-09-01 15:10] LABS: Absolute Lymphocyte Count 2.12 X10^3/uL (0.83-4.51); Absolute Neutrophil Count 4.3 X10^3/uL (2.0-7.7); Basophil# 0.02 X10^3/uL; Basophil% 0.3 % (0-1); Eosinophil# 0.06 X10^3/uL; Eosinophils% 0.9 % (0-5); Hemoglobin 14.8 g/dL (13.0-16.5); Lymphocyte # 2.12 X10^3/ul (0.83-4.51); Lymphocyte % 30.8 % (19-41); Mean Corp Hgb Conc 32.2 g/dL (32-36); Mean Corpuscular Hgb 27.6 pg (27.0-32.0); Mean Corpuscular Volume 85.7 fL (80-94); Mean Platelet Vol. 11.2 fl (6.2-12.0); Monocyte# 0.35 X10^3/uL; Monocyte% 5.1 % (0-10); NRBC Flagged by Analyzer 0 % (0-5); Neutrophil % 62.5 % (47-70); Platelet Count 185 K/mm3 (150-450); RBC Distribution Width CV 15.6 % (11.6-14.6); Red Blood Count 5.37 M/mm3 (4.6-6.2); White Blood Count 6.9 K/mm3 (4.4-11.0)
[2023-09-01 15:48] LABS: ALB/GLOB Ratio 0.9 RATIO (0.9-2.4); AST(SGOT) 17 U/L (15-37); Alanine Aminotransfer ALT/SGPT 26 U/L (16-61); Albumin, Serum 3.9 g/dL (3.2-5.0); Alkaline Phosphatase 77 U/L (45-117); Anion Gap 4 (5-15); BUN 22 mg/dL (7-18); BUN/Creat Ratio 21.8 RATIO (10-20); Calcium,Total 9.6 mg/dL (8.5-10.1); Chloride 101 mmol/L (98-107); Creatinine, Serum 1.01 mg/dL (0.70-1.30); EST Glomerular Filtration Rate 76 mL/min (>60); Est Glom Filt Rate - Afr Amer 92 mL/min (>60); Globulin 4.3 g/dL (2.2-4.2); Glucose 166 mg/dL (74-106); Potassium 4.4 mmol/L (3.5-5.1); Protein, Total 8.2 g/dL (6.4-8.2); Sodium Level 134 mmol/L (136-145)
== END | disposition home or self-care (01) ==
LOC: BIMLAB 11:58
PROVIDERS: PCP Internal Medicine; Referring Provider Nurse Practitioner; Visit Provider Nurse Practitioner
DX: I10 Essential (primary) hypertension (principal); E11.9 Type 2 diabetes mellitus without complications; Z79.4 Long term (current) use of insulin
CPT/HCPCS: 36415; 80053; 82043; 85025

== ENCOUNTER → 2023-09-07 | Outpatient (CLI) | payer MEDICARE, MEDICAID, SELFPAY ==
[2023-09-07 16:11] LABS: Microalbumin,Random Urine 16.5 mg/L (NO RANGE EST.)
== END | disposition home or self-care (01) ==
LOC: LABSPEC 13:41
PROVIDERS: PCP Internal Medicine; Referring Provider Nurse Practitioner; Visit Provider Nurse Practitioner
DX: E11.9 Type 2 diabetes mellitus without complications (principal); Z79.4 Long term (current) use of insulin
CPT/HCPCS: 82043

== ENCOUNTER → 2024-03-07 | Outpatient (CLI) | payer MEDICARE, MEDICAID, SELFPAY | END | disposition home or self-care (01) | LOC: BIMLAB 13:19 | PROVIDERS: PCP Internal Medicine; Referring Provider Urology; Visit Provider Urology | DX: R97.20 Elevated prostate specific antigen [PSA] (principal) | CPT/HCPCS: 36415; 84153 ==

== ENCOUNTER 2024-05-15 19:16 | Emergency (ER) | payer MEDICARE, MEDICAID, SELFPAY ==
[2024-05-15 19:17] VITALS: BP 155/94; PULSE 69; RESP 16; TEMP 36.7; O2SAT 99; BMI 40.5
--- NOTE | 2024-05-15 19:26 | EDS_ITS ---
HPI History of Present Illness Chief Complaint: Constipation [facility] Medical History Afib Seasonal allergies Gastric ulcer Wears hearing aid Wears glasses Depression Anxiety Insulin dependent diabetes mellitus Diabetes Ambulates with cane Prostate disease High cholesterol Easy bruising Dietary restriction Non-smoker Shortness of breath on exertion CPAP (continuous positive airway pressure) dependence Sleep apnea Foot drop History of pain when walking History of edema Cardiology follow-up encounter History of irregular heartbeat History of pacemaker History of atrial fibrillation Alternating constipation and diarrhea Diarrhea Constipation Abdominal pain Presence of permanent cardiac pacemaker (~07/16/17) Essential hypertension 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 Longstanding persistent atrial fibrillation Morbid obesity with BMI of 40.0-44.9, adult DM type 2 (diabetes mellitus, type 2) Atrial flutter with rapid ventricular response Home Medications ?Medication ?Instructions ?Recorded ?Last Taken ?Type diphenhydramine HCl 25 mg tablet 25 mg PO QHS PRN MADELYN RGIES 03/08/19 Unknown History (Benadryl Allergy) diltiazem HCl 120 mg 120 mg PO DAILY #90 caps Unknown Rx capsule,extended release 24 hr sotalol 80 mg tablet 80 mg PO BID heart rate #180 tabs 11/01/19 Unknown Rx rivaroxaban 20 mg tablet (Xarelto) 20 mg PO QPM #90 ta bs 04/19/20 09/12/21 Rx cholecalciferol (vitamin D3) 1,250 1,250 mcg PO QWEEK #8 caps 05/22/22 Unknown Rx mcg (50,000 unit) capsule bisacodyl 5 mg tablet,delayed 5 mg PO QHS PRN constipa tion #30 06/27/22 Unknown Rx release tabs atorvastatin 20 mg tablet 20 mg PO QHS #90 tabs Unknown Rx diclofenac sodium 1 % topical gel 2 g topical TID PRN pain #100 grams 08/21/22 Unknown Rx lactulose 10 gram/15 mL oral See Rx Instructions .Rout e 09/08/22 Unknown Rx solution .COMPLEX #946 mL furosemide 40 mg tablet See Rx Instructions PO DAILY #128 10/22/22 Unknown Rx tabs flash glucose scanning reader #1 ea 04/16/23 Unknown R x (FreeStyle Efrem 2 [place]) fluticasone propionate 50 1 spray intranasal BID #16 g antwan 06/01/23 Unknown Rx mcg/actuation nasal spray,suspension (Flonase Allergy Relief) tamsulosin 0.4 mg capsule 0.4 mg PO DAILY prostate #90 caps 06/16/23 Unknown Rx insulin syringes (disposable) 1 mL #500 ea 07/17/23 Un known Rx pen needle, diabetic 31 gauge x #100 ea 07/17/23 Unkno wn Rx 5/16 (1st Tier Unifine Pentips Plus) insulin human U-100 NPH-regulr 32 unit (0.32 mL) subcu t TID #30 mL 10/27/23 Unknown Rx 70-30 mix 100 unit/mL subcutaneous susp (Novolin 70/30 U-100 Insulin) lisinopril 2.5 mg tablet 2.5 mg PO DAILY #90 tabs Unknown Rx insulin glargine-yfgn 100 unit/mL 27 unit (0.27 mL) navarro bcut BID #45 mL 12/14/23 Unknown Rx (3 mL) subcutaneous pen (Semglee (insulin glargine-yfgn) Pen) flash glucose sensor (FreeStyle #6 KITS 01/14/24 Unkno wn Rx Efrem 2 Sensor kit) loperamide 2 mg capsule 2 mg PO Q6H PRN loose stool #90 01/20/24 Unknown Rx caps pantoprazole 40 mg tablet,delayed 40 mg PO QAM #90 tab s 01/20/24 Unknown Rx release albuterol sulfate 90 mcg/actuation 2 puff inhalation Q 4H PRN PRN 01/29/24 Unknown Rx aerosol inhaler (Ventolin HFA) Wheezing ##1 Allergy/AdvReac Type Severity Reaction Status Date / Time meperidine (From Demerol) Allergy Mild Vomiting Verified 05/15/24 19:17 codeine AdvReac Intermediate Unknown Verified 05/15/24 19:17 guaifenesin (From Robitussin) AdvReac Nausea Verified 05/15/24 19:17 Family History Father Diabetes Mother Stomach cancer Sister Rectal cancer Other Alcoholism Anxiety Arthritis CVA (cerebral vascular accident) Cancer Depression Surgical History H/O shoulder surgery History of permanent cardiac pacemaker placement History of cardiac radiofrequency ablation (RFA) (09/15/19) History of cholecystectomy Social History household members: family housing: house current occupational status: retired 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, 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, 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 Smoking Status: Former smoker Electronic Cigarette Use: not used alcohol intake: current alcohol intake frequency: holidays/special occasions only substance use type: does not use caffeine: No what type of physical activity do you participate in: none seatbelt use: sometimes do you feel safe at home: Yes EXAM Physical Exam Const Vital Signs: 05/15/24 19:17 Temperature 98.1 F Temperature Source Oral Pulse Rate 69 Respiratory Rate 16 Blood Pressure 155/94 H Blood Pressure Mean 114 Pulse Ox 99 MDM MDM MDM Narrative Medical decision making narrative: HISTORY OF PRESENT ILLNESS: Chief complaint: Blood in stool, constipation 79-year-old male history of A-fib on Xarelto, hypertension, JOSSELYN, type 2 diabetes, BPH presents concern for constipation for last 3 days. Notes blood in his stool REVIEW OF SYSTEMS: Pertinent positives: Blood in stool Pertinent negatives: Constipation PHYSICAL EXAM: Nursing triage notes reviewed, Vital signs reviewed Constitutional: please see mdm HENT: MMM Eyes: Pupils equal round and reactive to light, Extraocular muscles intact Neck: No stridor, no JVD, full neck ROM Lungs: Clear to auscultation, No wheezing or rales. No increased work of breathing, no conversational dyspnea, no accessory muscle use, no nasal flaring. No respiratory distress noted Heart: Regular rate and rhythm, No murmurs, No rubs and No gallops, 2+ distal pulses (radial, femoral, posterior tibial) in all extremities Abdomen: Soft, there is no tenderness, rigidity, rebound or guarding, no obvious peritoneal signs, no palpable pulsatile abdominal masses, no auscultated abdominal bruit : No CVAT Extremities: No edema Neuro: No new focal neurological deficits, cranial nerves II through XII intact, 5/5 strength in all present extremities. Intact sensation to light touch in all present extremities, 2+ reflexes bilateral patella tendons. Skin: No rash or lesions noted Rectal: Performed with nurse Ursula present. Rectal was positive for fecal impaction, there is no obvious fissures or hemorrhoids. There is no clint blood on my glove however there was specks of red likely blood in the patient's stool. MEDICAL DECISION MAKING: Chief Complaint: please see HPI External records reviewed: Reviewed prior gastroenterology notes. Patient has seen Dr. Saleh. Last colonoscopy was in 2021 Factors affecting care: Peptic ulcer, type 2 diabetes Social determinants of health: none History obtained from others: none Consults: none MDM Narrative: Patient was initially hemodynamically stable, afebrile and nontoxic-appearing. I considered the following differential diagnosis: Anemia, acute GI bleed, fecal impaction Exam consistent with fecal impaction. This is likely source of his bleeding likely secondary to stercoral colitis. ALL IMAGES (IF OBTAINED) HAVE BEEN PERSONALLY REVIEWED AND INTERPRETED BY MYSELF. CBC with no leukocytosis, worsening anemia (dropped approximate 3 g/dL since last study), no thrombocytopenia CMP without evidence of acute kidney injury, significant electrolyte abnormality, anion gap to suggest end organ hypo-perfusion, no evidence of metabolic acidosis with a normal bicarbonate, no evidence of hepatobiliary obstructive pathology. Lipase is wnl indicating no pancreatic inflammation. Stool occult sample positive History physical exam and labs consistent with likely fecal impaction producing local inflammatory changes such as stercoral colitis. Discussed the case with gastroenterology to decide on disposition. Specifically the patient is on a blood thinner and had evidence of GI bleed with a positive occult stool sample however his clinical exam was most consistent with a fecal impaction likely local rectal irritation. Discussed with Dr. Saleh who recommended discharge at this time. Encouraged patient to eat more indigestible fiber. Encouraged more fluid intake. Encouraged a bowel regiment which consists of MiraLAX, Colace senna. GI follow-up recommended The patient and/or family, caregivers express understanding. The patient and/or family, caregivers agrees with the plan. Shared decision making: I will have a discussion with the patient and or visitors regarding risk/benefits of further testing or admission. They will be made aware of of the risk/benefits inherent in this decision they will be given the opportunity to voice understanding. Total critical care time today provided was at least 0 minutes. This excludes separately billable procedures. Critical care time (if documented) is secondary to the patient having high probability of clinically significant/life threatening deterioration in the patient's condition which required my urgent intervention. Impression: 1. Constipation 2. Fecal impaction 3. GI bleed 4. History of anticoagulation Dispo: Discharge home This note was generated with Twined dictation software. It may contain incorrect words, spelling, and punctuation that were not noted in review of the chart prior to signing. Lab Data Labs: Laboratory Results - last 24 hr 05/15/24 19:30 WBC 6.0 RBC 4.33 L Hgb 11.8 L Hct 38.3 L MCV 88.5 MCH 27.3 MCHC 30.8 L RDW Std Deviation 51.1 H RDW Coeff of Naila 15.9 H Plt Count 171 MPV 10.8 Immature Gran % (Auto) 0.700 Neut % (Auto) 72.8 H Lymph % (Auto) 20.6 Mccormick % (Auto) 5.2 Eos % (Auto) 0.5 Baso % (Auto) 0.2 Absolute Neuts (auto) 4.4 Absolute Lymphs (auto) 1.24 Nucleated RBC % 0 Sodium 136 Potassium 4.2 Chloride 100 Carbon Dioxide 24.1 Anion Gap 11 BUN 19 Creatinine 1.07 Estim Creat Clear Calc 85.76 Est GFR (MDRD) Non-Af 71 BUN/Creatinine Ratio 17.5 Glucose 252 H Calcium 9.4 Total Bilirubin 0.46 AST 17 ALT 13 Alkaline Phosphatase 71 Total Protein 8.1 Albumin 4.4 Globulin 3.6 Albumin/Globulin Ratio 1.2 Lipase 24 Discharge Plan Triage Chief Complaint: Constipation ED Provider: Tone Herbert Dx/Rx/DC Orders Instructions: ED Constipation (Adult) Prescriptions: No Action diphenhydramine HCl [Benadryl Allergy] 25 mg tablet 25 mg PO QHS PRN (Reason: ALLERGIES) diltiazem HCl 120 mg capsule,extended release 24hr 120 mg PO DAILY Qty: 90 3RF sotalol 80 mg tablet 80 mg PO BID Qty: 180 3RF diclofenac sodium 1 % gel 2 g topical TID PRN (Reason: pain) Qty: 100 0RF Rx Instructions: apply to single elbow, wrist or hand; for hand includes palm/fingers/back of hand fluticasone propionate [Flonase Allergy Relief] 50 mcg/actuation spray,suspension 1 spray intranasal BID Qty: 16 1RF Rx Instructions: administer into each nostril insulin glargine-yfgn [Semglee(insulin glarg-yfgn)Pen] 100 unit/mL (3 mL) insulin pen 27 unit subcut BID Qty: 45 1RF Xarelto 20 mg tablet 20 mg PO QPM Qty: 90 3RF cholecalciferol (vitamin D3) 1,250 mcg (50,000 unit) capsule 1,250 mcg PO QWEEK Qty: 8 0RF bisacodyl 5 mg tablet,delayed release (DR/EC) 5 mg PO QHS PRN (Reason: constipation) Qty: 30 0RF atorvastatin 20 mg tablet 20 mg PO QHS Qty: 90 1RF lactulose 10 gram/15 mL solution See Rx Instructions .ROUTE .COMPLEX Qty: 946 3RF Dose Instruction: TAKE 30 ML BY MOUTH 2 TIMES A DAY Rx Instructions: TAKE 30 ML BY MOUTH 2 TIMES A DAY furosemide 40 mg tablet See Rx Instructions PO DAILY Qty: 128 1RF Rx Instructions: Take 80 mg daily on Thursday, Thursday, Thursday. Take 40 mg daily all other days. (DME) FreeStyle Efrem 2 [place] Misc See Rx Instructions .Route Qty: 1 6RF Rx Instructions: As directed tamsulosin 0.4 mg capsule 0.4 mg PO DAILY Qty: 90 1RF (DME) insulin syringes (disposable) 1 mL syringe See Rx Instructions .Route Qty: 500 1RF Rx Instructions: As directed (DME) pen needle, diabetic [1st Tier Unifine Pentips Plus] 31 gauge x 5/16 needle See Rx Instructions .Route Qty: 100 6RF Rx Instructions: As directed Novolin 70/30 U-100 Insulin 100 unit/mL (70-30) suspension 32 unit SUBCUT TID Qty: 30 5RF lisinopril 2.5 mg tablet 2.5 mg PO DAILY Qty: 90 1RF (DME) FreeStyle Efrem 2 Sensor Kit See Rx Instructions .ROUTE .COMPLEX Qty: 6 0RF Dose Instruction: USE DIRECTED Rx Instructions: USE DIRECTED loperamide 2 mg capsule 2 mg PO Q6H PRN (Reason: loose stool) Qty: 90 0RF pantoprazole 40 mg tablet,delayed release (DR/EC) 40 mg PO QAM Qty: 90 0RF Rx Instructions: 40 mg orally every morning; albuterol sulfate [Ventolin HFA] 90 mcg/actuation HFA aerosol inhaler 2 puff inhalation Q4H PRN PRN (Reason: Wheezing) Qty: 1 0RF Primary Care Provider: Yaritza Singh Referrals: Yaritza Singh MD [Primary Care Provider] - Friend,DO Edwardo [Med Staff - Active Staff] - Activity Restrictions/Additional Instructions: Thank you for trusting us with your care today! Your history, physical exam, and labs are consistent with likely stool impaction. Is likely causing local irritation to your rectum which is presenting with bleeding. Please go to local pharmacy or drugstore and obtain MiraLAX, Colace and senna. Please begin taking these daily to improve your regularity. Please eat more indigestible plant fiber. I recommend fiber 1 cereal by itself or flaxseed powder added to your regular diet to increase fiber. Please increase your oral fluid intake I recommend Body Armor, Pedialyte or Gatorade. Can also drink water. Please return to the emergency department if your symptoms change or worsen. Specifically get lightheaded, dizzy if you begin having chest pain, shortness of breath or have heavy bleeding. Please follow with your primary care physician for further outpatient evaluation and management. Print Language: Bermudian Disposition Disposition: Home, Self Care
[2024-05-15 19:38] LABS: Absolute Lymphocyte Count 1.24 X10^3/uL (0.83-4.51); Absolute Neutrophil Count 4.4 X10^3/uL (2.0-7.7); Basophil# 0.01 X10^3/uL; Basophil% 0.2 % (0-1); Eosinophil# 0.03 X10^3/uL; Eosinophils% 0.5 % (0-5); Hematocrit 38.3 % (40-54); Hemoglobin 11.8 g/dL (13.0-16.5); Lymphocyte # 1.24 X10^3/ul (0.83-4.51); Lymphocyte % 20.6 % (19-41); Mean Corp Hgb Conc 30.8 g/dL (32-36); Mean Corpuscular Hgb 27.3 pg (27.0-32.0); Mean Corpuscular Volume 88.5 fL (80-94); Mean Platelet Vol. 10.8 fl (6.2-12.0); Monocyte# 0.31 X10^3/uL; Monocyte% 5.2 % (0-10); NRBC Flagged by Analyzer 0 % (0-5); Neutrophil # 4.38 X10^3/uL (2.7-7.7); Neutrophil % 72.8 % (47-70); Platelet Count 171 K/mm3 (150-450); RBC Distribution Width CV 15.9 % (11.6-14.6); RBC Distribution Width SD 51.1 fl (35.1-43.9); Red Blood Count 4.33 M/mm3 (4.6-6.2)
[2024-05-15] MEDS: 0.9% Normal Saline (1000mL) 1,000 ML 999 ML IV (19:44)
[2024-05-15] MEDS: Lidocaine Jelly 2% 20 ML Syringe (URO-JET) 1 APPLIC TOPICAL (19:44)
[2024-05-15 19:57] LABS: ALB/GLOB Ratio 1.2 RATIO (0.9-2.4); AST(SGOT) 17 U/L (<=37); Alanine Aminotransfer ALT/SGPT 13 U/L (<=46); Albumin, Serum 4.4 g/dL (3.4-4.8); Alkaline Phosphatase 71 U/L (40-129); Anion Gap 11 (5-15); BUN 19 mg/dL (4-19); BUN/Creat Ratio 17.5 RATIO (10-20); Calcium,Total 9.4 mg/dL (7.6-11.0); Carbon Dioxide 24.1 mmol/L (21.0-32.0); Chloride 100 mmol/L (98-108); Creatinine, Serum 1.07 mg/dL (0.70-1.20); EST Glomerular Filtration Rate 71 (>60); Estimated Creatinine Clearance 85.76 ml/min (50-250); Globulin 3.6 g/dL (2.2-4.2); Glucose 252 mg/dL (70-99); Lipase 24 U/L (13-75); Potassium 4.2 mmol/L (3.3-5.1); Protein, Total 8.1 g/dL (5.9-8.4); Sodium Level 136 mmol/L (133-145); Total Bilirubin 0.46 mg/dL (0.00-1.30)
[2024-05-15 20:43] VITALS: BP 140/78; PULSE 69; RESP 16; TEMP 36.7; O2SAT 99
== END 2024-05-15 20:43 | disposition home or self-care (01) ==
LOC: ED 20:31
PROVIDERS: Emergency Provider Emergency Medicine; PCP Internal Medicine; Visit Provider Emergency Medicine
DX: K56.41 Fecal impaction (principal); I48.11 Longstanding persistent atrial fibrillation; E11.9 Type 2 diabetes mellitus without complications; Z79.4 Long term (current) use of insulin; E78.00 Pure hypercholesterolemia, unspecified; K92.1 Melena; I10 Essential (primary) hypertension; Z79.01 Long term (current) use of anticoagulants; Z79.899 Other long term (current) drug therapy; Z87.891 Personal history of nicotine dependence
CPT/HCPCS: 80053; 82274; 83690; 85025; 96360; 99284; A4216

== ENCOUNTER → 2024-06-02 | Outpatient (CLI) | payer MEDICARE, MEDICAID, SELFPAY ==
[2024-06-02 12:53] LABS: Absolute Lymphocyte Count 2.31 X10^3/uL (0.83-4.51); Absolute Neutrophil Count 4.1 X10^3/uL (2.0-7.7); Basophil# 0.02 X10^3/uL; Basophil% 0.3 % (0-1); Eosinophil# 0.04 X10^3/uL; Eosinophils% 0.6 % (0-5); Hematocrit 36.1 % (40-54); Lymphocyte # 2.31 X10^3/ul (0.83-4.51); Lymphocyte % 33.1 % (19-41); Mean Corp Hgb Conc 30.5 g/dL (32-36); Mean Corpuscular Hgb 26.8 pg (27.0-32.0); Mean Platelet Vol. 11.6 fl (6.2-12.0); Monocyte# 0.47 X10^3/uL; Monocyte% 6.7 % (0-10); NRBC Flagged by Analyzer 0 % (0-5); Neutrophil # 4.09 X10^3/uL (2.7-7.7); Neutrophil % 58.6 % (47-70); Platelet Count 161 K/mm3 (150-450); RBC Distribution Width CV 15.9 % (11.6-14.6); RBC Distribution Width SD 51.6 fl (35.1-43.9)
[2024-06-02 13:47] LABS: ALB/GLOB Ratio 1.2 RATIO (0.9-2.4); AST(SGOT) 18 U/L (<=37); Alanine Aminotransfer ALT/SGPT 15 U/L (<=46); Albumin, Serum 4.1 g/dL (3.4-4.8); Alkaline Phosphatase 65 U/L (40-129); Anion Gap 11 (5-15); BUN 20 mg/dL (4-19); BUN/Creat Ratio 18.4 RATIO (10-20); Calcium,Total 9.3 mg/dL (7.6-11.0); Carbon Dioxide 23.4 mmol/L (21.0-32.0); Chloride 103 mmol/L (98-108); Cholesterol 131 mg/dL (<=200); EST Glomerular Filtration Rate 69 (>60); Globulin 3.3 g/dL (2.2-4.2); Glucose 129 mg/dL (70-99); High Density Lipoprotein 28 mg/dL; Low Density Lipoprotein Calc. 79 mg/dL; Potassium 4.3 mmol/L (3.3-5.1); Protein, Total 7.4 g/dL (5.9-8.4); Sodium Level 137 mmol/L (133-145); Total Bilirubin 0.41 mg/dL (0.00-1.30); Triglycerides 122 mg/dL; Very Low Density Lipoprotein 24 mg/dL (5-40); cholesterol:hdl ratio screen 4.75
[2024-06-02 13:49] LABS: PSA,Total- Diagnostic 4.92 ng/mL (0.00-4.00); Vitamin D,25 Hydroxy 12.2 ng/mL (30-100)
== END | disposition home or self-care (01) ==
LOC: BIMLAB 11:01
PROVIDERS: PCP Internal Medicine; Referring Provider Internal Medicine; Visit Provider Internal Medicine
DX: I10 Essential (primary) hypertension (principal); E55.9 Vitamin D deficiency, unspecified; N40.0 Benign prostatic hyperplasia without lower urinary tract symptoms
CPT/HCPCS: 36415; 80053; 80061; 82306; 84153; 85025

== ENCOUNTER → 2024-11-30 | Outpatient (CLI) | payer MEDICARE, MEDICAID, SELFPAY ==
[2024-11-30 12:20] LABS: Hematocrit 35.2 % (40-54); Hemoglobin 10.6 g/dL (13.0-16.5); Immature Granulocytes Count 0.080 X10^3/uL (0.0-0.0); Mean Corp Hgb Conc 30.1 g/dL (32-36); Mean Corpuscular Volume 87.8 fL (80-94); Mean Platelet Vol. 11.9 fl (6.2-12.0); NRBC Flagged by Analyzer 0 % (0-5); Platelet Count 124 K/mm3 (150-450); RBC Distribution Width CV 16.7 % (11.6-14.6); RBC Distribution Width SD 52.5 fl (35.1-43.9); Red Blood Count 4.01 M/mm3 (4.6-6.2); White Blood Count 5.8 K/mm3 (4.4-11.0)
[2024-11-30 13:24] LABS: AST(SGOT) 14 U/L (<=37); Alanine Aminotransfer ALT/SGPT 8 U/L (<=46); Albumin, Serum 4.0 g/dL (3.4-4.8); Alkaline Phosphatase 62 U/L (40-129); Anion Gap 12 (5-15); BUN 25 mg/dL (4-19); BUN/Creat Ratio 20.3 RATIO (10-20); Calcium,Total 9.4 mg/dL (7.6-11.0); Carbon Dioxide 23.5 mmol/L (21.0-32.0); Chloride 101 mmol/L (98-108); Globulin 3.7 g/dL (2.2-4.2); Glucose 180 mg/dL (70-99); Potassium 4.2 mmol/L (3.3-5.1)
[2024-11-30 14:05] LABS: Ferritin 289 ng/mL (37-417); Iron 84 ug/dL (65-175); Iron Binding Capacity,Unsat 155 ug/dL (228-428); PSA,Total- Diagnostic 10.20 ng/mL (0.00-4.00); Vitamin D,25 Hydroxy 15.7 ng/mL (30-100)
[2024-11-30 14:36] LABS: Iron Binding Capacity,Total 239 ug/dL (250-450)
== END | disposition home or self-care (01) ==
PROVIDERS: PCP Internal Medicine
DX: E55.9 Vitamin D deficiency, unspecified (principal); I48.19 Other persistent atrial fibrillation; I10 Essential (primary) hypertension; D64.9 Anemia, unspecified; N40.0 Benign prostatic hyperplasia without lower urinary tract symptoms
CPT/HCPCS: 36415; 80053; 82306; 82728; 83540; 83550; 84153; 85025

== ENCOUNTER 2024-12-02 10:30 | Emergency (ER) | payer MEDICARE, MEDICAID, SELFPAY ==
[2024-12-02 10:31] VITALS: BP 115/66; PULSE 72; RESP 18; TEMP 36.8; O2SAT 100
[2024-12-02 10:35] VITALS: BP 115/66; PULSE 72; RESP 18; TEMP 36.8; O2SAT 100; BMI 36.1
--- NOTE | 2024-12-02 10:51 | CT_ITS ---
PROCEDURE: ABDOMEN/PELVIS WITHOUT CONT 12/02/2024 REASON FOR EXAM: RIGHT FLANK PAIN, HEMATURIA TECHNIQUE: Procedure Code: CTABDPEL Modality: CT Procedure: ABDOMEN/PELVIS WITHOUT CONT Noncontrast technique limits evaluation of the abdominal and pelvic viscera. Coronal and Sagittal reconstruction series were provided. One or more dose reduction techniques were used (e.g., Automated exposure control, adjustment of the mA and/or kV according to patient size, use of iterative reconstruction technique). RADIATION DOSE SUMMARY: CTDlvol: 20.21 mGy DLP: 1181.52 mGycm COMPARISON: None. FINDINGS: Lung bases: Atherosclerotic calcifications of the coronary arteries. Liver: Unremarkable. Gallbladder: Status post cholecystectomy. Spleen: Unremarkable. Pancreas: Unremarkable. Adrenals: Unremarkable. Kidneys: Perinephric fat stranding. No hydronephrosis. No nephrolithiasis. Bladder: Two bladder stones measuring 1.2 x 1.4 cm. Bladder wall thickening concerning for acute cystitis. Reproductive Organs: The prostate is enlarged measures 7.5 cm in diameter. Bowel: No bowel wall obstruction or bowel wall thickening. Appendix: Unremarkable. Lymph nodes: No evidence of lymphadenopathy. Vasculature: No aneurysm. Atherosclerotic calcifications. Peritoneum / Retroperitoneum: No free air or free fluid. Bones: Multilevel degenerate changes of the tibiotalar spine. No acute bony abnormalities. CT/Abdomen/Pelvis without Cont IMPRESSION: Perinephric fat stranding. No hydronephrosis. No nephrolithiasis. Two bladder stones measuring 1.2 x 1.4 cm. Bladder wall thickening concerning for acute cystitis. The prostate is enlarged measures 7.5 cm in diameter. Reading Location: [facility]
--- NOTE | 2024-12-02 10:51 | EDS_ITS ---
HPI History of Present Illness Chief Complaint: Complaint Narrative Narrative: Patient is a 79-year-old male presenting to the emergency department for hematuria that started this morning at 4 AM. Patient has a past medical history of BPH, abdominal wall hernia, gastritis, JOSSELYN, diabetes, hypertension, a flutter with RVR on rivaroxaban. States he took himself off this 3 weeks ago due to gingival bleeding. States that over the past few days he has had right sided flank pain. Thought he pulled a muscle. States that this morning he started to have a hematuria and then developed some dysuria with urinary urgency as well. Denies fever, chills, nausea, vomiting, abdominal pain, constipation. Has chronic diarrhea that he wears diaper for. [facility] Medical History Afib Seasonal allergies Gastric ulcer Wears hearing aid Wears glasses Depression Anxiety Insulin dependent diabetes mellitus Diabetes Ambulates with cane Prostate disease High cholesterol Easy bruising Dietary restriction Non-smoker Shortness of breath on exertion CPAP (continuous positive airway pressure) dependence Sleep apnea Foot drop History of pain when walking History of edema Cardiology follow-up encounter History of irregular heartbeat History of pacemaker History of atrial fibrillation Alternating constipation and diarrhea Diarrhea Constipation Abdominal pain Presence of permanent cardiac pacemaker (~07/16/17) Essential hypertension Hypersomnia half-way current use of anticoagulant Longstanding persistent atrial fibrillation Morbid obesity with BMI of 40.0-44.9, adult DM type 2 (diabetes mellitus, type 2) Atrial flutter with rapid ventricular response Home Medications ?Medication ?Instructions ?Recorded ?Last Taken ?Type diphenhydramine HCl 25 mg tablet 25 mg PO QHS PRN MADELYN RGIES 03/08/19 Unknown History (Benadryl Allergy) diltiazem HCl 120 mg 120 mg PO DAILY #90 caps Unknown Rx capsule,extended release 24 hr sotalol 80 mg tablet 80 mg PO BID heart rate #180 tabs 11/01/19 Unknown Rx rivaroxaban 20 mg tablet (Xarelto) 20 mg PO QPM #90 ta bs 04/19/20 09/12/21 Rx bisacodyl 5 mg tablet,delayed 5 mg PO QHS PRN constipa tion #30 06/27/22 Unknown Rx release tabs atorvastatin 20 mg tablet 20 mg PO QHS #90 tabs Unknown Rx diclofenac sodium 1 % topical gel 2 g topical TID PRN pain #100 grams 08/21/22 Unknown Rx lactulose 10 gram/15 mL oral See Rx Instructions .Rout e 09/08/22 Unknown Rx solution .COMPLEX #946 mL furosemide 40 mg tablet See Rx Instructions PO DAILY #128 10/22/22 Unknown Rx tabs flash glucose scanning reader #1 ea 04/16/23 Unknown R x (FreeStyle Efrem 2 [place]field) fluticasone propionate 50 1 spray intranasal BID #16 g antwan 06/01/23 Unknown Rx mcg/actuation nasal spray,suspension (Flonase Allergy Relief) insulin syringes (disposable) 1 mL #500 ea 07/17/23 Un known Rx albuterol sulfate 90 mcg/actuation 2 puff inhalation Q 4H PRN PRN 01/29/24 Unknown Rx aerosol inhaler (Ventolin HFA) Wheezing ##1 lisinopril 2.5 mg tablet 2.5 mg PO DAILY #90 tabs Unknown Rx insulin glargine-yfgn 100 unit/mL 20 unit (0.2 mL) sub cut BID #12 mL 08/23/24 Unknown Rx (3 mL) subcutaneous pen (Semglee (insulin glargine-yfgn) Pen) insulin human U-100 NPH-regulr 32 unit (0.32 mL) subcu t TID #30 mL 08/23/24 Unknown Rx 70-30 mix 100 unit/mL subcutaneous susp (Novolin 70/30 U-100 Insulin) flash glucose sensor (FreeStyle #2 KITS 08/29/24 Unkno wn Rx Efrem 2 Sensor kit) loperamide 2 mg capsule 2 mg PO Q6H PRN loose stool #90 11/29/24 Unknown Rx caps pantoprazole 40 mg tablet,delayed 40 mg PO QAM #90 tab s 11/29/24 Unknown Rx release pen needle, diabetic 31 gauge x #100 ea 11/29/24 Unkno wn Rx 06/24 (1st Tier Unifine Pentips Plus) sitagliptin phosphate 25 mg tablet 25 mg PO QDAY #90 t abs 11/29/24 Unknown Rx (Januvia) tamsulosin 0.4 mg capsule 0.4 mg PO DAILY prostate #90 caps 11/29/24 Unknown Rx cholecalciferol (vitamin D3) 1,250 1,250 mcg PO QWEEK #8 caps 12/01/24 Unknown Rx mcg (50,000 unit) capsule Allergy/AdvReac Type Severity Reaction Status Date / Time meperidine (From Demerol) Allergy Mild Vomiting Verified 12/02/24 10:37 codeine AdvReac Intermediate Unknown Verified 12/02/24 10:37 guaifenesin (From Robitussin) AdvReac Nausea Verified 12/02/24 10:37 Family History Father Diabetes Mother Stomach cancer Sister Rectal cancer Other Alcoholism Anxiety Arthritis CVA (cerebral vascular accident) Cancer Depression Surgical History H/O shoulder surgery History of permanent cardiac pacemaker placement History of cardiac radiofrequency ablation (RFA) (09/15/19) History of cholecystectomy Social History household members: family housing: house current occupational status: retired 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 No acute distress HEENT: Head is normocephalic and atraumatic, sinuses nontender, pupils equal r ound and reactive. Nares are patent. Oropharynx and throat exams normal. Neck: Supple without lymphadenopathy nontender Cardiovascular: Regular rate and rhythm, no murmurs. No rubs or gallops. Nor mal S1 and S2 Respiratory: Clear to auscultation bilaterally. No wheezes, rales, rhonchi Abdominal: Soft and nontender. Normal bowel sounds. No guarding or rebound. Nonsurgical abdomen. No CVA tenderness to palpation. Extremities: No tenderness. No bruising. Normal range of motion. Normal sensation. Skin: No rash or redness. Neurological: Cranial nerves II through XII are grossly intact. Normal strength and sensation. Normal cerebellar function The rest of the physical exam is unremarkable Const Vital Signs: 12/02/24 10:31 12/02/24 10:35 12/02/24 12:31 Temperature 98.3 F 98.3 F Temperature Source Oral Oral Pulse Rate 72 72 72 Respiratory Rate 18 18 16 Blood Pressure 115/66 115/66 126/80 H Blood Pressure Mean 82 82 95 Pulse Ox 100 100 99 Oxygen Delivery Method Room Air Room Air 12/02/24 13:17 Temperature 98.3 F Temperature Source Pulse Rate 72 Respiratory Rate 16 Blood Pressure 126/80 H Blood Pressure Mean 95 Pulse Ox 99 Oxygen Delivery Method MDM MDM MDM Narrative Medical decision making narrative: Patient is a 79-year-old male presenting to the emergency department for hematuria. Patient was seen and examined. Vitals are stable. Patient resting bed comfortably no acute distress. Differential includes but is not limited to: UTI, nephrolithiasis, bladder mass CBC with no leukocytosis and stable chronic anemia of 10.1. CMP with mild MADDI that has worsened since May. Urinalysis with occult blood and RBCs. There is no bacteria, WBCs, nitrates or leukocyte esterase to be consistent with a urinary tract infection. CT shows perinephric fat stranding. No hydronephrosis. No nephrolithiasis. Two bladder stones measuring 1.2 x 1.4 cm. Bladder wall thickening concerning for acute cystitis. The prostate is enlarged measures 7.5 cm in diameter. Based on the imaging, lab and urinalysis findings he likely just passed the stones found in the bladder causing the hematuria and the flank pain that is no longer present. This likely caused the mild MADDI and perinephric stranding. No indication for antibiotics given there is no evidence of infection on urinalysis. He is still able to urinate has no evidence of retention here. He is not on his oral anticoagulation anymore. Patient was updated on the lab and imaging findings. He does have follow-up with Dr. Hammond for his elevated PSA levels. Recommended he follow-up for the hematuria as well. Recommended if he has any symptoms related to the hematuria including urinary retention he return to the emergency department immediately. Patient discharged from the Emergency Department. I do not feel that the patient's evaluation reveals any acute reason for admission at this time. I instructed them to either follow-up with their primary care physician or promptly return to the Emergency Department for reevaluation should symptoms worsen or new symptoms develop. I explained what symptoms would indicate the need to return to the emergency department. Shared decision making was used. The patient voiced understanding of the treatment plan and is agreeable with it. Clinical impression MADDI Bladder calculi Hematuria History & Record Review Discussion w/independent historian: Patient Additional record(s) reviewed:: Prior labs Lab Data Attestation: I reviewed the patient's lab results. Labs: Laboratory Results - last 24 hr 12/02/24 12/02/24 11:00 11:31 WBC 5.0 RBC 3.83 L Hgb 10.1 L Hct 33.3 L MCV 86.9 MCH 26.4 L MCHC 30.3 L RDW Std Deviation 51.9 H RDW Coeff of Naila 16.5 H Plt Count 127 L MPV 11.4 Immature Gran % (Auto) 1.600 H Neut % (Auto) 59.7 Lymph % (Auto) 28.8 Dade % (Auto) 9.1 Eos % (Auto) 0.6 Baso % (Auto) 0.2 Absolute Neuts (auto) 3.0 Absolute Lymphs (auto) 1.45 Nucleated RBC % 0 Sodium 136 Potassium 4.3 Chloride 101 Carbon Dioxide 24.7 Anion Gap 10 BUN 29 H Creatinine 1.46 H Estim Creat Clear Calc 59.19 Est GFR (MDRD) Non-Af 49 L BUN/Creatinine Ratio 19.7 Glucose 189 H Calcium 9.7 Urine Color Red Urine Clarity Turbid Urine pH 6.5 Ur Specific Liberty 1.020 Urine Protein 500 H Urine Glucose (UA) Normal Urine Ketones 5 H Urine Occult Blood 150 H Urine Nitrite Negative Urine Bilirubin Negative Urine Urobilinogen Normal Ur Leukocyte Esterase Negative Urine RBC > 100 SEEN Urine WBC 0 SEEN Ur Squamous Epith Cells 0 SEEN Urine Bacteria 0 SEEN Urine Mucus 0 SEEN Radiography Diagnostic Testing: Clinical Impression(s) from Imaging Studies Abdomen/Pelvis CT 12/02/24 10:51 IMPRESSION: Perinephric fat stranding. No hydronephrosis. No nephrolithiasis. Two bladder stones measuring 1.2 x 1.4 cm. Bladder wall thickening concerning for acute cystitis. The prostate is enlarged measures 7.5 cm in diameter. Reading Location: [facility] Discharge Plan Triage Chief Complaint: Complaint ED Provider: Dianna White Dx/Rx/DC Orders Clinical Impression: Hematuria, Bladder calculi, MADDI (acute kidney injury) Instructions: Hematuria: Possible Causes, Understanding Bladder Stones, ED Ottoniel turia Prescriptions: No Action diphenhydramine HCl [Benadryl Allergy] 25 mg tablet 25 mg PO QHS PRN (Reason: ALLERGIES) diltiazem HCl 120 mg capsule,extended release 24hr 120 mg PO DAILY Qty: 90 3RF sotalol 80 mg tablet 80 mg PO BID Qty: 180 3RF diclofenac sodium 1 % gel 2 g topical TID PRN (Reason: pain) Qty: 100 0RF Rx Instructions: apply to single elbow, wrist or hand; for hand includes palm/fingers/back of hand fluticasone propionate [Flonase Allergy Relief] 50 mcg/actuation spray,suspension 1 spray intranasal BID Qty: 16 1RF Rx Instructions: administer into each nostril (DME) pen needle, diabetic [1st Tier Unifine Pentips Plus] 31 gauge x 5/16 needle See Rx Instructions .Route Qty: 100 6RF Rx Instructions: As directed tamsulosin 0.4 mg capsule 0.4 mg PO DAILY Qty: 90 1RF loperamide 2 mg capsule 2 mg PO Q6H PRN (Reason: loose stool) Qty: 90 0RF Januvia 25 mg tablet 25 mg PO QDAY Qty: 90 1RF pantoprazole 40 mg tablet,delayed release (DR/EC) 40 mg PO QAM Qty: 90 1RF Rx Instructions: 40 mg orally every morning; Xarelto 20 mg tablet 20 mg PO QPM Qty: 90 3RF bisacodyl 5 mg tablet,delayed release (DR/EC) 5 mg PO QHS PRN (Reason: constipation) Qty: 30 0RF atorvastatin 20 mg tablet 20 mg PO QHS Qty: 90 1RF lactulose 10 gram/15 mL solution See Rx Instructions .ROUTE .COMPLEX Qty: 946 3RF Dose Instruction: TAKE 30 ML BY MOUTH 2 TIMES A DAY Rx Instructions: TAKE 30 ML BY MOUTH 2 TIMES A DAY furosemide 40 mg tablet See Rx Instructions PO DAILY Qty: 128 1RF Rx Instructions: Take 80 mg daily on Thursday, Thursday, Thursday. Take 40 mg daily all other days. (DME) Cellfire Efrem 2 Greenfield Misc See Rx Instructions .Route Qty: 1 6RF Rx Instructions: As directed (DME) insulin syringes (disposable) 1 mL syringe See Rx Instructions .Route Qty: 500 1RF Rx Instructions: As directed albuterol sulfate [Ventolin HFA] 90 mcg/actuation HFA aerosol inhaler 2 puff inhalation Q4H PRN PRN (Reason: Wheezing) Qty: 1 0RF lisinopril 2.5 mg tablet 2.5 mg PO DAILY Qty: 90 1RF insulin glargine-yfgn [Semglee(insulin glarg-yfgn)Pen] 100 unit/mL (3 mL) insulin pen 20 unit subcut BID Qty: 12 0RF Novolin 70/30 U-100 Insulin 100 unit/mL (70-30) suspension 32 unit SUBCUT TID Qty: 30 0RF (DME) FreeStyle Efrem 2 Sensor Kit See Rx Instructions .ROUTE .COMPLEX Qty: 2 0RF Dose Instruction: USE DIRECTED Rx Instructions: USE DIRECTED cholecalciferol (vitamin D3) 1,250 mcg (50,000 unit) capsule 1,250 mcg PO QWEEK Qty: 8 0RF Primary Care Provider: Yaritza Singh Referrals: Yaritza Singh MD [Primary Care Provider, Internal Medicine] Cricket Hammond MD [Med Staff - Active Staff, Urology] - As soon as possible Activity Restrictions/Additional Instructions: Your labs and imaging show that you most likely recently passed a kidney stone that is now in your bladder. This is likely the cause of the blood in your urine. You were able to continue urinating now however if a clot forms you may develop urinary retention or unable to pee. If this happens you need to come back to the emergency department for possible catheter placement. You need to follow-up with your urologist to soon as possible. Drink lots of fluids at home. Your evaluation in the Emergency Department did not reveal any acute reason for admission. However, I want to emphasize that you may be early in the course of a disease process or illness even if it is not present. For this reason you should follow-up within 24 hours for reevaluation with either your primary care physician or if necessary back here in the Emergency Department. You should return to the Emergency Department immediately if your symptoms worsen or new symptoms develop. Print Language: Haitian Disposition Disposition: Home, Self Care Discharge Date/Time: 12/02/24 13:20
[2024-12-02 11:07] LABS: Hematocrit 33.3 % (40-54); Hemoglobin 10.1 g/dL (13.0-16.5); Immature Granulocytes Count 0.080 X10^3/uL (0.0-0.0); Mean Corp Hgb Conc 30.3 g/dL (32-36); Mean Corpuscular Volume 86.9 fL (80-94); Mean Platelet Vol. 11.4 fl (6.2-12.0); NRBC Flagged by Analyzer 0 % (0-5); Platelet Count 127 K/mm3 (150-450); RBC Distribution Width CV 16.5 % (11.6-14.6); RBC Distribution Width SD 51.9 fl (35.1-43.9); Red Blood Count 3.83 M/mm3 (4.6-6.2); White Blood Count 5.0 K/mm3 (4.4-11.0)
[2024-12-02 11:34] LABS: Anion Gap 10 (5-15); BUN 29 mg/dL (4-19); BUN/Creat Ratio 19.7 RATIO (10-20); Calcium,Total 9.7 mg/dL (7.6-11.0); Carbon Dioxide 24.7 mmol/L (21.0-32.0); Chloride 101 mmol/L (98-108); Estimated Creatinine Clearance 59.19 ml/min (50-250); Glucose 189 mg/dL (70-99); Potassium 4.3 mmol/L (3.3-5.1)
[2024-12-02 11:34] LABS: Mucous, Urine 0 SEEN /hpf (<or=2+); Squamous Epithelial Cells - UA 0 SEEN /hpf (0-5)
[2024-12-02 11:53] LABS: Color, Urine Red (Yellow); Glucose, Dipstick Normal (Normal); Ketone-Dipstick 5 mg/dl (Negative); Leukocyte Esterase-Dipstick Negative /ul (Negative); Nitrite-Dipstick Negative (Negative); Occult Blood-Urine 150 /ul (Negative); Protein-Dipstick 500 mg/dl (Negative); Specific Gravity, Urine 1.020 (1.002-1.030); Urine Bilirubin Dipstick Negative (Negative)
[2024-12-02 12:03] LABS: Red Blood Cells-Urine > 100 SEEN /hpf (0-5)
[2024-12-02 12:31] VITALS: BP 126/80; PULSE 72; RESP 16; O2SAT 99
[2024-12-02 13:17] VITALS: BP 126/80; PULSE 72; RESP 16; TEMP 36.8; O2SAT 99
== END 2024-12-02 13:20 | disposition home or self-care (01) ==
PROVIDERS: Emergency Provider Student in an Organized Health Care Education/Training Program; PCP Internal Medicine; Visit Provider Student in an Organized Health Care Education/Training Program
DX: R31.9 Hematuria, unspecified (principal); Z79.4 Long term (current) use of insulin; E11.9 Type 2 diabetes mellitus without complications; N21.0 Calculus in bladder; N40.1 Benign prostatic hyperplasia with lower urinary tract symptoms; I10 Essential (primary) hypertension; R39.15 Urgency of urination; N17.9 Acute kidney failure, unspecified; K52.9 Noninfective gastroenteritis and colitis, unspecified; E78.00 Pure hypercholesterolemia, unspecified; G47.33 Obstructive sleep apnea (adult) (pediatric); Z79.01 Long term (current) use of anticoagulants; Z79.84 Long term (current) use of oral hypoglycemic drugs; Z79.899 Other long term (current) drug therapy; Z87.891 Personal history of nicotine dependence
CPT/HCPCS: 74176; 80048; 81001; 85025; 99283; A4216